=== PATIENT | female | born 1975 | race Caucasian/White ===

== ENCOUNTER 2022-01-13 14:14 | Outpatient (REF) | payer OTHER, SELFPAY ==
--- NOTE | ~2022-01-13 | MM_ITS ---
EXAMINATION: MM SCREENING DIGITAL BREAST TOMOSYNTHESIS, BILATERAL CLINICAL INFORMATION: Screening. Asymptomatic. The lifetime risk of breast cancer based on the Tyrer-Cuzick Model is 10%. COMPARISON: Outside mammography: 12/23/2020 ([facility]) TECHNIQUE: Digital breast tomosynthesis is performed in both the craniocaudal and mediolateral oblique views along with computer-aided detection (CAD). Synthesized 2D images are generated from the tomosynthesis. FINDINGS: There are scattered areas of fibroglandular density (ACR BI-RADS breast composition Category b). There are no significant masses, abnormal calcifications, or other abnormalities. Parenchymal pattern is similar to the outside exam. The axilla and skin contours are unremarkable. No significant changes. MM/MM tomosynthesis screening BI IMPRESSION: There are no significant changes from prior outside exam. ASSESSMENT: BI-RADS 1: Negative RECOMMENDATION: Routine annual mammography screening. This patient's information was entered into a reminder system with a target due date for their next mammogram.
== END 2022-01-13 14:15 | disposition home or self-care (01) ==
LOC: HO.MAMMO 14:14
PROVIDERS: PCP Internal Medicine; Visit Provider Internal Medicine
DX: Z12.31 Encounter for screening mammogram for malignant neoplasm of breast (principal)
CPT/HCPCS: 77063; 77067

== ENCOUNTER 2023-05-18 09:39 | Outpatient (REF) | payer OTHER, SELFPAY ==
[2023-05-18 11:45] LABS: MANUAL DIFF FLAG NO
[2023-05-18 11:52] LABS: Basophils Absolute Auto 0.1 X10*3/uL (0.0-0.2); Basophils Percent Auto 0.7 % (0-2); Eosinophils Absolute Auto 0.3 X10*3/uL (0.0-0.4); Eosinophils Percent Auto 2.6 % (0-4); Hematocrit 43.8 % (37.0-47.0); Hemoglobin 14.9 g/dl (12.0-16.0); Imm Gran Abs Auto 0.04 X10*3/uL (0.00-0.03); Imm Gran Pct Auto 0.4 % (0.0-0.4); Lymphocytes Absolute Auto 2.5 X10*3/uL (1.2-4.9); Lymphocytes Percent Auto 24.4 % (20-40); Mean Corpuscular Hemoglobin 31.1 pg (27.0-33.0); Mean Corpuscular Volume 91.4 fL (80.0-98.0); Mean Platelet Volume 10.2 fL (9.4-12.3); Monocytes Absolute Auto 0.5 X10*3/uL (0.1-1.2); Monocytes Percent Auto 4.6 % (2-11); Neutrophils Absolute Auto 6.8 x10*3/uL (2.0-8.3); Neutrophils Percent Auto 67.3 % (45-73); Platelet Count 278 X10*3/uL (160-400); Red Blood Count 4.79 X10*6/uL (4.20-5.50); Red Cell Distribution Width 12.1 % (11.0-16.0); White Blood Count 10.1 X10*3/uL (4.8-10.8)
[2023-05-18 12:11] LABS: Estimated Average Glucose 103 mg/dL; Hemoglobin A1c % 5.2 %
[2023-05-18 12:17] LABS: Alanine Aminotransferase 13 U/L (0-31); Albumin Level 4.4 g/dL (3.5-5.0); Alkaline Phosphatase 68 U/L (39-117); Anion Gap 11 (12-20); Aspartate Amino Transferase 17 U/L (5-31); Bilirubin Total 0.9 mg/dL (0.0-1.0); Blood Urea Nitrogen 10 mg/dL (9-16); Calcium 10.1 mg/dL (8.4-10.2); Carbon Dioxide 26 mmol/L (22-29); Chloride 108 mmol/L (96-108); Cholesterol 275 mg/dL; Estimated Glomerular Filt Rate > 60; Glucose Random 89 mg/dL (60-115); HDL Cholesterol 45 mg/dL; LDL Cholesterol Calculated 183 mg/dl; Potassium 3.9 mmol/L (3.3-5.1); Sodium 141 mmol/L (135-145); Total Protein 7.7 g/dL (6.5-8.0); Triglycerides 239 mg/dL
[2023-05-18 12:19] LABS: Free T4 (Free Thyroxine) 0.69 ng/dL (0.71-1.85); Thyroid Stimulating Hormone 12.26 uIU/mL (0.32-4.0)
[2023-05-18 12:40] LABS: Creatinine Urine 74.81 mg/dL
== END 2023-05-18 09:40 | disposition home or self-care (01) ==
LOC: HO.HHCL 09:39
PROVIDERS: Visit Provider Student in an Organized Health Care Education/Training Program
DX: I10 Essential (primary) hypertension (principal)
CPT/HCPCS: 36415; 80053; 80061; 82043; 83036; 84436; 84439; 84443; 85025

== ENCOUNTER 2023-08-24 10:26 | Outpatient (REF) | payer OTHER, SELFPAY ==
[2023-08-24 12:45] LABS: TSH reflex Free T4 11.21 uIU/mL (0.32-4.0)
[2023-08-24 12:56] LABS: Anion Gap 11 (12-20)
[2023-08-24 13:01] LABS: Alanine Aminotransferase 16 U/L (0-31); Albumin Level 4.1 g/dL (3.5-5.0); Alkaline Phosphatase 82 U/L (39-117); Aspartate Amino Transferase 18 U/L (5-31); Bilirubin Direct 0.2 mg/dL (0.0-0.5); Bilirubin Total 0.8 mg/dL (0.0-1.0); Blood Urea Nitrogen 8 mg/dL (9-16); Calcium 9.7 mg/dL (8.4-10.2); Carbon Dioxide 29 mmol/L (22-29); Chloride 101 mmol/L (96-108); Cholesterol 197 mg/dL (<200); Estimated Glomerular Filt Rate > 60; Glucose Random 90 mg/dL (60-115); HDL Cholesterol 39 mg/dL (>40); LDL Cholesterol Calculated 103 mg/dL (<100); Potassium 3.4 mmol/L (3.3-5.1); Sodium 138 mmol/L (135-145); Total Protein 7.3 g/dL (6.5-8.0); Triglycerides 276 mg/dL (<150)
[2023-08-24 13:15] LABS: Free T4 (Free Thyroxine) 0.64 ng/dL (0.71-1.85)
== END 2023-08-24 10:27 | disposition home or self-care (01) ==
LOC: HO.HHCL 10:26
PROVIDERS: Visit Provider Internal Medicine
DX: E66.9 Obesity, unspecified (principal); E28.2 Polycystic ovarian syndrome; E03.9 Hypothyroidism, unspecified; E78.5 Hyperlipidemia, unspecified
CPT/HCPCS: 36415; 80048; 80061; 80076; 84439; 84443

== ENCOUNTER 2024-02-20 12:25 | Outpatient (REF) | payer SELFPAY ==
[2024-02-20 14:28] LABS: Estimated Average Glucose 120 mg/dL; Hemoglobin A1c % 5.8 % (<6.0)
[2024-02-20 14:32] LABS: Rheumatoid Factor < 13.0 IU/mL (<15.0)
[2024-02-20 14:44] LABS: Erythrocyte Sedimentation Rate 40 MM/HR (0-20)
[2024-02-20 18:02] LABS: Alanine Aminotransferase 23 U/L (0-31); Albumin Level 4.3 g/dL (3.5-5.0); Alkaline Phosphatase 81 U/L (39-117); Anion Gap 12 (12-20); Aspartate Amino Transferase 22 U/L (5-31); Bilirubin Direct 0.2 mg/dL (0.0-0.5); Bilirubin Total 0.7 mg/dL (0.0-1.0); Blood Urea Nitrogen 12 mg/dL (9-16); C Reactive Protein 0.79 mg/dL (< or = 0.50); Calcium 9.3 mg/dL (8.4-10.2); Carbon Dioxide 28 mmol/L (22-29); Chloride 104 mmol/L (96-108); Cholesterol 182 mg/dL (<200); Estimated Glomerular Filt Rate > 60; Glucose Random 86 mg/dL (60-115); HDL Cholesterol 35 mg/dL (>40); LDL Cholesterol Calculated 99 mg/dL (<100); Sodium 141 mmol/L (135-145); Total Protein 7.7 g/dL (6.5-8.0); Triglycerides 242 mg/dL (<150)
[2024-02-20 18:06] LABS: TSH reflex Free T4 2.87 uIU/mL (0.32-4.0)
[2024-02-21 08:17] LABS: HIV AB/AG Nonreactive (Nonreactive); HIV Num 1 0.05 S/CO (0.00-0.99); ~HepC Num1 0.11 S/CO (0.00-0.79); ~Hepatitis C Antibody Nonreactive (Nonreactive)
[2024-02-21 15:34] LABS: Anti Nuclear Antibody Screen NEGATIVE (NEGATIVE)
== END 2024-02-20 12:26 | disposition home or self-care (01) ==
LOC: HO.HHCL 12:25
PROVIDERS: Visit Provider Internal Medicine
DX: Z11.4 Encounter for screening for human immunodeficiency virus [HIV] (principal); Z13.6 Encounter for screening for cardiovascular disorders; R53.83 Other fatigue
CPT/HCPCS: 36415; 80048; 80061; 80076; 83036; 84443; 85652; 86038; 86140; 86431; 86803; 87389

== ENCOUNTER 2024-02-28 09:49 | Outpatient (REF) | payer SELFPAY ==
[2024-02-28 11:32] LABS: MANUAL DIFF FLAG NO
[2024-02-28 11:42] LABS: Basophils Absolute Auto 0.1 X10*3/uL (0.0-0.2); Basophils Percent Auto 0.8 % (0-2); Eosinophils Absolute Auto 0.2 X10*3/uL (0.0-0.4); Eosinophils Percent Auto 2.2 % (0-4); Hematocrit 37.7 % (37.0-47.0); Hemoglobin 13.1 g/dl (12.0-16.0); Imm Gran Abs Auto 0.03 X10*3/uL (0.00-0.03); Imm Gran Pct Auto 0.3 % (0.0-0.4); Lymphocytes Absolute Auto 2.3 X10*3/uL (1.2-4.9); Lymphocytes Percent Auto 24.1 % (20-40); Mean Corpuscular HGB Conc 34.7 g/dl (31.0-35.0); Mean Corpuscular Hemoglobin 31.9 pg (27.0-33.0); Mean Corpuscular Volume 91.7 fL (80.0-98.0); Mean Platelet Volume 10.3 fL (9.4-12.3); Monocytes Absolute Auto 0.4 X10*3/uL (0.1-1.2); Monocytes Percent Auto 4.1 % (2-11); Neutrophils Absolute Auto 6.6 x10*3/uL (2.0-8.3); Neutrophils Percent Auto 68.5 % (45-73); Platelet Count 316 X10*3/uL (160-400); Red Blood Count 4.11 X10*6/uL (4.20-5.50); Red Cell Distribution Width 12.4 % (11.0-16.0); White Blood Count 9.7 X10*3/uL (4.8-10.8)
[2024-02-28 12:15] LABS: Anion Gap 11 (12-20); Blood Urea Nitrogen 9 mg/dL (9-16); Carbon Dioxide 26 mmol/L (22-29); Chloride 108 mmol/L (96-108); Estimated Glomerular Filt Rate > 60; Glucose Random 135 mg/dL (60-115); Potassium 3.6 mmol/L (3.3-5.1); Sodium 141 mmol/L (135-145)
== END 2024-02-28 09:50 | disposition home or self-care (01) ==
LOC: HO.HHCL 09:49
PROVIDERS: Visit Provider Internal Medicine
DX: E87.6 Hypokalemia (principal); R53.83 Other fatigue
CPT/HCPCS: 36415; 80048; 85025

== ENCOUNTER 2024-03-01 09:23 | Outpatient (REF) | payer SELFPAY ==
[2024-03-01 12:55] LABS: Iron 70 mcg/dL (30-160); Percent Iron Saturation 27 % (15-50); Total Iron Binding Capacity 255 mcg/dL (228-428); Unsaturated Iron Binding 185 ug/dL
[2024-03-01 13:14] LABS: Ferritin 131 ng/mL (10-250)
== END 2024-03-01 09:24 | disposition home or self-care (01) ==
LOC: HO.HHCL 09:23
PROVIDERS: Visit Provider Internal Medicine
DX: R53.83 Other fatigue (principal)
CPT/HCPCS: 36415; 82728; 83540

== ENCOUNTER 2024-03-22 10:03 | Outpatient (REF) | payer OTHER, SELFPAY ==
--- NOTE | ~2024-03-22 | XR_ITS ---
EXAMINATION: XR WRIST, RIGHT CLINICAL INFORMATION: Right wrist pain for 2 weeks. Pain anteriorly over ulnar aspect. COMPARISON: None available. TECHNIQUE: PA, lateral, and oblique views of the right wrist. XR/XR wrist RT min 3V FINDINGS AND IMPRESSION: There is approximately 0.35 cm of ulna negative variance. The distal radius and ulna are intact. The distal radioulnar joint is normal. Joint spaces of the wrist are normal. No arthritic deformity. No fracture, subluxation or focal soft tissue swelling. There are no dystrophic soft tissue calcifications. No specific source of pain is identified.
== END 2024-03-22 10:04 | disposition home or self-care (01) ==
LOC: HO.HHCX 10:03
PROVIDERS: Visit Provider Emergency Medicine
DX: M25.531 Pain in right wrist (principal)
CPT/HCPCS: 73110

== ENCOUNTER 2024-05-03 12:40 | Outpatient (REF) | payer OTHER, SELFPAY ==
[2024-05-03 13:10] LABS: MANUAL DIFF FLAG NO
[2024-05-03 13:19] LABS: Basophils Absolute Auto 0.1 X10*3/uL (0.0-0.2); Basophils Percent Auto 0.8 % (0-2); Eosinophils Absolute Auto 0.2 X10*3/uL (0.0-0.4); Eosinophils Percent Auto 2.9 % (0-4); Hematocrit 41.4 % (37.0-47.0); Hemoglobin 14.1 g/dl (12.0-16.0); Imm Gran Abs Auto 0.02 X10*3/uL (0.00-0.03); Imm Gran Pct Auto 0.3 % (0.0-0.4); Lymphocytes Absolute Auto 2.3 X10*3/uL (1.2-4.9); Lymphocytes Percent Auto 30.3 % (20-40); Mean Corpuscular HGB Conc 34.1 g/dl (31.0-35.0); Mean Corpuscular Hemoglobin 30.9 pg (27.0-33.0); Mean Corpuscular Volume 90.6 fL (80.0-98.0); Monocytes Absolute Auto 0.5 X10*3/uL (0.1-1.2); Neutrophils Absolute Auto 4.4 x10*3/uL (2.0-8.3); Neutrophils Percent Auto 58.7 % (45-73); Platelet Count 277 X10*3/uL (160-400); Red Blood Count 4.57 X10*6/uL (4.20-5.50); Red Cell Distribution Width 11.9 % (11.0-16.0); White Blood Count 7.6 X10*3/uL (4.8-10.8)
[2024-05-03 13:30] LABS: Estimated Average Glucose 117 mg/dL; Hemoglobin A1c % 5.7 % (<6.0)
[2024-05-03 14:49] LABS: Alanine Aminotransferase 18 U/L (0-31); Albumin Level 4.6 g/dL (3.5-5.0); Alkaline Phosphatase 95 U/L (39-117); Anion Gap 15 (12-20); Aspartate Amino Transferase 17 U/L (5-31); Bilirubin Total 0.9 mg/dL (0.0-1.0); Blood Urea Nitrogen 12 mg/dL (9-16); Calcium 9.9 mg/dL (8.4-10.2); Carbon Dioxide 26 mmol/L (22-29); Chloride 104 mmol/L (96-108); Estimated Glomerular Filt Rate > 60; Glucose Random 66 mg/dL (60-115); Potassium 3.5 mmol/L (3.3-5.1); Sodium 141 mmol/L (135-145); Total Protein 8.1 g/dL (6.5-8.0)
[2024-05-03 14:55] LABS: TSH reflex Free T4 3.38 uIU/mL (0.32-4.0); Vitamin D 25-OH Total 28.5 ng/mL (>30)
[2024-05-03 15:15] LABS: Folate 9.1 ng/mL (> or = 4.0); Vitamin B12 339 pg/mL (200-900)
== END 2024-05-03 12:41 | disposition home or self-care (01) ==
LOC: HO.HHCL 12:40
PROVIDERS: Visit Provider Internal Medicine
DX: G47.10 Hypersomnia, unspecified (principal); R73.03 Prediabetes
CPT/HCPCS: 36415; 80053; 82306; 82607; 82746; 83036; 84443; 85025

== ENCOUNTER 2024-07-16 14:17 | Outpatient (REF) | payer OTHER, SELFPAY ==
--- NOTE | ~2024-07-16 | MM_ITS ---
EXAMINATION: MM SCREENING DIGITAL BREAST TOMOSYNTHESIS, BILATERAL CLINICAL INFORMATION: Screening. Asymptomatic. COMPARISON: Mammography: Comparison is made with available priors TECHNIQUE: Digital breast mammography with tomosynthesis is performed in both the craniocaudal and mediolateral oblique views along with computer-aided detection (CAD). FINDINGS: There are scattered areas of fibroglandular density (ACR BI-RADS breast composition Category b). There are no significant masses, abnormal calcifications, or other abnormalities. MM/MM tomosynthesis screening BI IMPRESSION: No mammographic evidence of malignancy. ASSESSMENT: BI-RADS BI-RADS 1 - Negative RECOMMENDATION: Routine annual mammography screening. 1 year F/U This examination should not preclude the clinical evaluation of a suspicious palpable abnormality. This patient's information was entered into a reminder system with a target due date for their next mammogram. Electronically signed by: Kim Dye DO 08/06/2024 04:20 PM EDT
== END 2024-07-16 14:18 | disposition home or self-care (01) ==
LOC: HO.MAMMO 14:17
PROVIDERS: PCP Internal Medicine; Visit Provider Internal Medicine
DX: Z12.31 Encounter for screening mammogram for malignant neoplasm of breast (principal)
CPT/HCPCS: 77063; 77067

== ENCOUNTER → 2024-07-16 14:30 | Outpatient (BNV) | payer OTHER, SELFPAY | PROVIDERS: PCP Internal Medicine; Visit Provider Internal Medicine | DX: Z12.31 Encounter for screening mammogram for malignant neoplasm of breast (principal) | CPT/HCPCS: 77063; 77067 ==

== ENCOUNTER 2024-07-25 14:20 | Outpatient (REF) | payer OTHER, SELFPAY ==
--- NOTE | ~2024-07-25 | XR_ITS ---
EXAMINATION: XR SHOULDER, RIGHT CLINICAL INFORMATION: Right shoulder pain. COMPARISON: None available. TECHNIQUE: AP, Grashey, and scapular Y views of the right shoulder. FINDINGS: Tfwo-yb-soikdbju acromioclavicular joint space narrowing with small marginal osteophytes. No glenohumeral joint space narrowing or marginal osteophytes. Mild superior subluxation of the humeral head which could indicate an underlying rotator cuff tendon tear. Lobulated calcification associated with the distal infraspinatus tendon measuring up to 1.8 cm in craniocaudal dimension, consistent with calcific tendinitis. XR/XR shoulder RT min 2V IMPRESSION: 1. Infraspinatus calcific tendinitis. 2. Mild superior subluxation of the humeral head which could indicate an underlying rotator cuff tendon tear. 3. Eepe-le-tqfkruuo acromioclavicular osteoarthritis. Electronically signed by: Neo Banda MD 07/26/2024 09:34 AM EDT
== END 2024-07-25 14:21 | disposition home or self-care (01) ==
LOC: HO.HHCX 14:20
PROVIDERS: Visit Provider Student in an Organized Health Care Education/Training Program
DX: M25.511 Pain in right shoulder (principal); G89.29 Other chronic pain
CPT/HCPCS: 73030

== ENCOUNTER 2025-06-02 09:22 | Outpatient (REF) | payer OTHER, SELFPAY ==
--- OUTSIDE RECORDS SUMMARY | 2025-06-02 10:11 | XMS_ITS | Encounter Summary ---
Author Organization [employer] Address [address] [facility] 7 [place] [address] Care Team Providers Care Customer Service Professional Name Role Phone Sejal Viramontes MD Primary Care Provide r Encounter Details Date Type Department Care Team (Late st Contact Info) Description 12/14/2023 Abstract [facility] [address] [place], [place] [phone] Luiz Pattreson, DMD [address], [place] [phone] Social History Tobacco Use Types Packs/Day Years Used Date Smoking Tobacco: Every Day Cigarettes Passive Smoke Exposure: Past Smokeless Tobacco: Never Alcohol Use Standard Drinks/Week Comments Defer 0 (1 standard drink = 0.6 oz pur e alcohol) Depression Answer Date Recorded Patient Health Questionnaire-9 Score 0 07/17/2023 Housing Stability Answer Date Recorded What is your housing situation today? I have robert chow 08/22/[address] you li ve. Do you have problems with any of the following? None of the above 08/22/2023 Food Insecurity Answer Date Recorded Within the past 12 months, y ou worried that your food would run out before you got money to buy more: Never True 08/22/2023 Within the past 12 months,th e food you bought just didn't last and you didn't have enough money to get more: Never True Transportation Answer Date Recorded In the past 12 months, has l ack of transportation kept you from medical appts, meetings, work or from getting things needed for daily living? No 08/22/2023 Utilities Answer Date Recorded In the past 12 months, has t he electric, gas, oil or water company threatened to shut off services in your home? No 08/22/2023 Depression Answer Date Recorded Patient Health Questionnaire-2 Score 0 07/17/2023 Comments Unknown Sex and Gender Information Value Date Recorded Sex Assigned at Female 09/05/2022 10:37 AM EDT Legal Sex Female 10:37 AM EDT Gender Identity Female 09/05/2022 10:37 AM EDT Sexual Orientation Straight 09/05/2022 10 :37 AM EDT documented as of this encounter Plan of Treatment Upcoming Encounters Date Type Department Care Team (Late st Contact Info) Description 08/01/2025 9:00 AM EDT Office Visit [facility] [address] [place] [phone] Sejal Viramontes MD [address] [place] [phone] documented as of this encounter Visit Diagnoses Not on filedocumented in this encounter Additional Health Concerns Assessment Noted Time PHQ-9 Depression Total Score: 0 07/17/20 23 12:58 PM EDT documented as of this encounter Care Teams Customer Service Professional Relationship Specialty Start Date End Date Sejal Viramontes MD [address] [place] [phone] PCP - General Family Medicine 12/21/21 documented as of this encounter
[2025-06-02 11:37] LABS: MANUAL DIFF FLAG NO
[2025-06-02 11:41] LABS: Hematocrit 41.5 % (37.0-47.0); Hemoglobin 14.2 g/dl (12.0-16.0); Imm Gran Abs Auto 0.05 X10*3/uL (0.00-0.03); Imm Gran Pct Auto 0.5 % (0.0-0.4); Lymphocytes Absolute Auto 2.5 X10*3/uL (1.2-4.9); Mean Corpuscular HGB Conc 34.2 g/dl (31.0-35.0); Mean Corpuscular Hemoglobin 31.1 pg (27.0-33.0); Mean Corpuscular Volume 90.8 fL (80.0-98.0); NRBC Abs Auto 0.000 X10*3/uL (0.0-0.012); NRBC Pct Auto 0.0 /100WBC (0.0-0.2); Platelet Count 306 X10*3/uL (160-400); Red Blood Count 4.57 X10*6/uL (4.20-5.50); White Blood Count 10.8 X10*3/uL (4.8-10.8)
[2025-06-02 12:39] LABS: Albumin Level 4.8 g/dL (3.5-5.0); Alkaline Phosphatase 98 U/L (39-117); Anion Gap 11 (12-20); Aspartate Amino Transferase 30 U/L (5-31); Blood Urea Nitrogen 16 mg/dL (9-16); Calcium 9.3 mg/dL (8.4-10.2); Carbon Dioxide 26 mmol/L (22-29); Chloride 107 mmol/L (96-108); Cholesterol 205 mg/dL (<200); Estimated Glomerular Filt Rate 56; HDL Cholesterol 41 mg/dL (>40); Potassium 3.2 mmol/L (3.3-5.1); Sodium 141 mmol/L (135-145); Total Protein 8.0 g/dL (6.5-8.0); Triglycerides 228 mg/dL (<150)
[2025-06-02 13:55] LABS: Alanine Aminotransferase 29 U/L (0-31)
[2025-06-02 14:06] LABS: HIV Num 1 0.05 S/CO (0.00-0.99); ~HepC Num1 0.14 S/CO (0.00-0.79); ~Hepatitis C Antibody Nonreactive (Nonreactive)
== END 2025-06-02 09:23 | disposition home or self-care (01) ==
LOC: HO.HHCL 09:22
PROVIDERS: PCP Internal Medicine; Visit Provider Internal Medicine
DX: Z11.4 Encounter for screening for human immunodeficiency virus [HIV] (principal); Z11.59 Encounter for screening for other viral diseases; I10 Essential (primary) hypertension; E66.811 Obesity, class 1; Z68.34 Body mass index [BMI] 34.0-34.9, adult; R73.03 Prediabetes
CPT/HCPCS: 36415; 80053; 80061; 82306; 84443; 85025; 86803; 87389

== ENCOUNTER 2025-06-12 12:26 | Outpatient (REF) | payer OTHER, SELFPAY ==
--- OUTSIDE RECORDS SUMMARY | 2025-06-12 12:37 | XMS_ITS | Encounter Summary ---
Author Organization [employer] Address [address] [facility] 7t [place] [address] Care Team Providers Care Other Wood Processing Machine Operator Name Role Phone Sejal Viramontes MD Primary Care Provide r Encounter Details Date Type Department Care Team (Late st Contact Info) Description 12/14/2023 Abstract [facility] [address] [place], [place] [phone] Luiz Patterson, DMD [address], [place] [phone] Social History Tobacco Use Types Packs/Day Years [...] Description 08/01/2025 9:00 AM EDT Office Visit [facility] MED[facility] [address] [place] [phone] Sejal Viramontes MD [address] [place] [phone] documented as of this encounter Visit Diagnoses Not on filedocumented in this encounter Additional Health Concerns Assessment Noted Time PHQ-9 Depression Total Score: 0 07/17/20 23 12:58 PM EDT documented as of this encounter Care Teams Other Wood Processing Machine Operator Relationship Specialty Start Date End Date Sejal Viramontes MD [address] [place] [phone] PCP - General Family Medicine 12/21/21 documented as of this encounter
[2025-06-12 13:54] LABS: Anion Gap 13 (12-20); Blood Urea Nitrogen 16 mg/dL (9-16); Calcium 9.5 mg/dL (8.4-10.2); Carbon Dioxide 27 mmol/L (22-29); Chloride 104 mmol/L (96-108); Estimated Glomerular Filt Rate > 60; Potassium 3.1 mmol/L (3.3-5.1); Sodium 141 mmol/L (135-145)
== END 2025-06-12 12:27 | disposition home or self-care (01) ==
LOC: HO.HHCL 12:26
PROVIDERS: PCP Internal Medicine; Visit Provider Internal Medicine
DX: E87.6 Hypokalemia (principal)
CPT/HCPCS: 36415; 80048

== ENCOUNTER 2025-07-14 10:56 | Outpatient (REF) | payer OTHER, SELFPAY ==
--- OUTSIDE RECORDS SUMMARY | 2025-07-14 09:40 | XMS_ITS | Encounter Summary ---
Author Organization [employer] Address [address] [facility] 7t [place] [address] Care Team Providers Care Child Day Care Center Worker Name Role Phone Sejal Viramontes MD Primary Care Provide r Reason for Visit * Reason Comments face infection Encounter Details Date Type Department Care Team ([facility] st Contact Info) Description 07/14/2025 9:40 AM EDT Office Visit [facility] [address] [place], [place] [phone] Nitza Henderson NP [address] [place] [address] Vesicles (Primary Dx); Cellulitis of face Social [...] Chronic Kidney Disease: Estimated GFR < 60 mL/min/[id number] Kidney Disease: Estimated GFR < 15 mL/min/1.73m2 [...] Description 08/01/2025 9:00 AM EDT Office Visit [facility] [address] [place] [phone] Sejal Viramontes MD [address] [place] [address] Scheduled Orders Name Type Priority Associated Diagnoses [...] documented as of this encounter Care Teams Child Day Care Center Worker Relationship Specialty Start Date End Date Sejal Viramontes MD [address] [place] [address] PCP - General Family Medicine 12/21/21 documented as of this encounter
--- OUTSIDE RECORDS SUMMARY | 2025-07-15 13:15 | XMS_ITS | Encounter Summary ---
Author Organization [employer] Address [address] [facility] 7 [place] [address] Care Team Providers Care Machinist Job Setter Name Role Phone Sejal Viramontes MD Primary Care Provide r Reason for Visit * Reason Onset Date Comments Med Refill 11/27/2024 Encounter Details Date Type Department Care Team (Late st Contact Info) Description 11/27/2024 Refill [facility] [address] [place], [place] [phone] Sejal Viramontes MD [address] [place] [address] Acquired hypothyroidism Social History Tobacco Use Types Packs/Day Years Used Date Smoking Tobacco: Every Day Cigarettes Passive Smoke Exposure: Past Smokeless Tobacco: Never Alcohol Use Standard Drinks/Week Comments Defer 0 (1 standard drink = 0.6 oz pur e alcohol) Depression Answer Date Recorded Patient Health Questionnaire-9 Score 0 07/30/2024 Patient Health Questionnaire-9 Score 0 07/30/2024 Last PHQ-9: Questionnaire Data Not on file 0 07/30/2024 Housing Stability Answer Date Recorded What is your housing situation today? I have robertaniyah chow 08/22/[address] you [...] Date Recorded Patient Health Questionnaire-2 Score 0 07/30/2024 Internet Access Answer Date Recorded Internet Access Q1 Yes 07/08/2024 Internet Access Q2 Not on file 07/08/2024 Comments Unknown Sex and Gender Information Value [...] Description 08/01/2025 9:00 AM EDT Office Visit [facility] [address] [place] [address] Sejal Viramontes MD [address] [place] [address] documented as of this encounter Visit Diagnoses Diagnosis Acquired hypothyroidism Unspecified hypothyroidism documented in this encounter Additional Health Concerns Assessment Noted Time PHQ-9 Depression Total Score: 0 07/30/20 24 9:38 AM EDT documented as of this encounter Care Teams Machinist Job Setter Relationship Specialty Start Date End Date Sejal Viramontes MD [address] [place] [phone] PCP - General Family Medicine 12/21/21 documented as of this encounter
--- OUTSIDE RECORDS SUMMARY | 2025-07-15 13:15 | XMS_ITS | Encounter Summary ---
Author Organization [employer] Address [address] [facility] 7 [place] [address] Care Team Providers Care Machinist Helper Name Role Phone Sejal Viramontes MD Primary Care Provide r Reason for Visit * Reason Onset Date Comments Med Refill 09/21/2023 Encounter Details Date Type Department Care Team (Late st Contact Info) Description 09/21/2023 Refill [facility] [address] [place], [place] [phone] Sejal Viramontes MD [address] [place] [address] Essential hypertension Social History Tobacco Use Types Packs/Day Years Used Date Smoking Tobacco: Every Day Cigarettes Passive Smoke Exposure: Past Smokeless Tobacco: Never Depression Answer Date Recorded Patient Health Questionnaire-9 [...] Description 08/01/2025 9:00 AM EDT Office Visit [facility] [address] [place] [phone] Sejal Viramontes MD [address] [place] [address] documented as of this encounter Visit Diagnoses Diagnosis Essential hypertension Unspecified essential hypertension documented in this encounter Additional Health Concerns Assessment Noted Time PHQ-9 Depression Total Score: 0 07/17/20 23 12:58 PM EDT documented as of this encounter Care Teams Machinist Helper Relationship Specialty Start Date End Date Sejal Viramontes MD [address] [place] [phone] PCP - General Family Medicine 12/21/21 documented as of this encounter
--- OUTSIDE RECORDS SUMMARY | 2025-07-15 13:15 | XMS_ITS | Encounter Summary ---
Author Organization [employer] Address [address] [facility] 7 [place] [address] Care Team Providers Care Strike Off Machine Operator Name Role Phone Sejal Viramontes MD Primary Care Provide r Reason for Visit * Reason Onset Date Comments Specimen label 07/15/2025 Encounter Details Date Type Department Care Team ([facility] st Contact Info) Description 07/15/2025 Telephone [facility] [address] [place], [place] [phone] Nitza Henderson, RASHID [address] [place] [address] Specimen label Social History Tobacco Use Types Packs/Day Years [...] AM EDT documented as of this encounter Miscellaneous Notes * Telephone Encounter - Guillermo Colunga [place] - 07/15/2025 11:01 AM EDT Incoming call from [facility] to inform that due to specimen container ith wrong pt label was receivedtest was not perform. Pt will need a re-collection. Please f/u with DAVIS Tristan if needs re-collection. Thank you. documented in this encounter Plan of Treatment Upcoming Encounters Date Type Department Care Team (Late st Contact Info) Description 08/01/2025 9:00 AM EDT Office Visit [facility] [address] [place] [address] Sejal Viramontes MD [address] [place] [address] documented as of this encounter Visit Diagnoses Not on filedocumented in this encounter Additional Health Concerns Assessment Noted Time PHQ-9 Depression Total Score: 0 05/29/20 25 9:10 AM EDT documented as of this encounter Care Teams Strike Off Machine Operator Relationship Specialty Start Date End Date Sejal Viramontes MD [address] [place] [address] PCP - General Family Medicine 12/21/21 documented as of this encounter
--- OUTSIDE RECORDS SUMMARY | 2025-07-15 13:15 | XMS_ITS | Encounter Summary ---
Author Organization [employer] Address 75 [facility] 7t [place] [address] Care Team Providers Care Rubbish Collector Name Role Phone Sejal Viramontes MD Primary Care Provide r Encounter Details Date Type Department Care Team (Late st Contact Info) Description 10/17/[address] [facility] [address] [place] [address] [phone] Sejal Viramontes MD [address] [place], [place] [phone] Social History Tobacco Use Types Packs/Day Years [...] Description 08/01/2025 9:00 AM EDT Office [address] [facility] [address] [place] [address] Sejal Viramontes MD [address] [place] [address] documented as of this encounter Visit Diagnoses Not on filedocumented in this encounter Additional Health Concerns Assessment Noted Time PHQ-9 Depression Total Score: 0 07/17/20 23 12:58 PM EDT documented as of this encounter Care Teams Rubbish Collector Relationship Specialty Start Date End Date Sejal Viramontes MD [address] [place] [address] PCP - General Family Medicine 12/21/21 documented as of this encounter
--- OUTSIDE RECORDS SUMMARY | 2025-07-15 13:15 | XMS_ITS | Encounter Summary ---
Author Organization [employer] Address 75 [facility] 7 [place] [address] Care Team Providers Care Office Services Assistant Name Role Phone Sejal Viramontes MD Primary Care Provide r Reason for Visit * Reason Onset Date Comments Med Refill 01/13/2025 Encounter Details Date Type Department Care Team (Late st Contact Info) Description 01/13/2025 Refill [facility] [address] [place], [place] [phone] Sejal Viramontes MD [address] [place] [address] Gastroesophageal reflux disease, unspecified whether esophagitis present Social History Tobacco Use Types Packs/Day Years [...] Description 08/01/2025 9:00 AM EDT Office Visit [facility] [address] [place] [address] Sejal Viramontes MD [address] [place] [address] documented as of this encounter Visit Diagnoses Diagnosis Gastroesophageal reflux disease, unspecified whether esophagitis present documented in this encounter Additional Health Concerns Assessment Noted Time PHQ-9 Depression Total Score: 0 07/30/20 24 9:38 AM EDT documented as of this encounter Care Teams Office Services Assistant Relationship Specialty Start Date End Date Sejal Viramontes MD [address] [place] [address] PCP - General Family Medicine 12/21/21 documented as of this encounter
--- OUTSIDE RECORDS SUMMARY | 2025-07-15 13:15 | XMS_ITS | Encounter Summary ---
Author Organization [employer] Address 75 [facility] 7t [place] [address] Care Team Providers Care Microsoft Crm Developer Name Role Phone Sejal Viramontes MD Primary Care Provide r Encounter Details Date Type Department Care Team (Latest Contact Info) Description 07/14/2025 Travel Social History Tobacco Use Types Packs/Day Years [...] 9:00 AM EDT Office Visit [facility] [address] [place] [address] Sejal Viramontes MD [address] [place] [phone] documented as of this encounter Visit Diagnoses Not on filedocumented in this encounter Additional Health Concerns Assessment Noted Time PHQ-9 Depression Total Score: 0 05/29/20 25 9:10 AM EDT documented as of this encounter Care Teams Microsoft Crm Developer Relationship Specialty Start Date End Date Sejal Viramontes MD [address] [place] [id number] PCP - General Family Medicine 12/21/21 documented as of this encounter
--- OUTSIDE RECORDS SUMMARY | 2025-07-15 13:15 | XMS_ITS | Encounter Summary ---
Author Organization [employer] Address 75 [facility] 7 [place] [address] Care Team Providers Care Fiberglass Bonding Machine Tender Name Role Phone Sejal Viramontes MD Primary Care Provide r Encounter Details Date Type Department Care Team (Late st Contact Info) Description 12/14/2023 Abstract [facility] [address] [place], [place] [phone] Luiz Patterson, DMD [address] [place], [place] [phone] Social History Tobacco Use Types Packs/Day Years [...] Description 08/01/2025 9:00 AM EDT Office Visit [facility] [address] [place] [phone] Sejal Viramontes MD [address] [place] [phone] documented as of this encounter Visit Diagnoses Not on filedocumented in this encounter Additional Health Concerns Assessment Noted Time PHQ-9 Depression Total Score: 0 07/17/20 23 12:58 PM EDT documented as of this encounter Care Teams Fiberglass Bonding Machine Tender Relationship Specialty Start Date End Date Sejal Viramontes MD [address] [place] [id number] PCP - General Family Medicine 12/21/21 documented as of this encounter
--- OUTSIDE RECORDS SUMMARY | 2025-07-15 13:15 | XMS_ITS | Encounter Summary ---
Author Organization [employer] Address [address] [facility] 7 [place] [address] Care Team Providers Care Buffet Manager Name Role Phone Sejal Viramontes MD Primary Care Provide r Reason for Visit * Reason Onset Date Comments Med Refill 09/03/2024 Encounter Details Date Type Department Care Team ([facility] st Contact Info) Description 09/03/2024 Refill [facility] [address] [place], [place] [phone] Sejal Viramontes MD [address] [place] [address] Menopause Social History Tobacco Use Types Packs/Day Years [...] Description 08/01/2025 9:00 AM EDT Office Visit [facility] [address] [place] [address] Sejal Viramontes MD [address] [place] [address] documented as of this encounter Visit Diagnoses Diagnosis Menopause Symptomatic menopausal or female climacteric states documented in this encounter Additional Health Concerns Assessment Noted Time PHQ-9 Depression Total Score: 0 07/30/20 24 9:38 AM EDT documented as of this encounter Care Teams Buffet Manager Relationship Specialty Start Date End Date Sejal Viramontes MD [address] [place] [phone] PCP - General Family Medicine 12/21/21 documented as of this encounter
--- OUTSIDE RECORDS SUMMARY | 2025-07-15 13:15 | XMS_ITS | Encounter Summary ---
Author Organization [employer] Address [address] [facility] 7 [place] [address] Care Team Providers Care Order Runner Name Role Phone Sejal Viramontes MD Primary Care Provide r Reason for Visit * Reason Comments Med Refill Encounter Details Date Type Department Care Team ([facility] st Contact Info) Description 07/09/2025 Refill [facility] [address] [place], [place] [phone] Sejal Viramontes MD [address] [place] [address] Gastroesophageal reflux disease, unspecified whether esophagitis present [...] 9:00 AM EDT Office Visit [facility] [address] [place] [address] Sejal Viramontes MD [address] [place] [address] documented as of this encounter Visit Diagnoses Diagnosis Gastroesophageal reflux disease, unspecified whether esophagitis present documented in this encounter Additional Health Concerns Assessment Noted Time PHQ-9 Depression Total Score: 0 05/29/20 25 9:10 AM EDT documented as of this encounter Care Teams Order Runner Relationship Specialty Start Date End Date Sejal Viramontes MD [address] [place] [address] [phone] PCP - General Family Medicine 12/21/21 documented as of this encounter
--- OUTSIDE RECORDS SUMMARY | 2025-07-15 13:16 | XMS_ITS | Clinical Summary ---
Author Organization [email or web address] Address [address] [place] [address] 7 [place] [address] Care Team Providers Care Flyer Maker Name Role Phone Sejal Viramontes MD Primary Care Provide r Allergies No known active allergies Medications losartan (Cozaar) 100 MG tabletIndications :Hypokalemia TAKE 1 TABLET BY MOUTH EVERY DAY IN THE MORNING 30 tablet 11 02/26/20 25 Active amLODIPine (Norvasc) 10 MG tabletIndications :Hypokalemia TAKE 1 TABLET BY MOUTH EVERY DAY IN THE MORNING 30 tablet 11 03/24/20 25 Active venlafaxine XR (Effexor XR) 37.5 MG 24 hr capsuleIndication s:Menopause TAKE 1 CAPSULE BY MOUTH EVERY DAY. DO NOT BREAK, CRUSH, DISSOLVE OR CHEW. 30 capsule 5 03/28/20 25 Active levothyroxine (Synthroid, Levoxyl) 150 MCG tabletIndications :Acquired hypothyroidism TAKE 1 TABLET BY MOUTH EVERY MORNING BEFORE BREAKFAST 90 tablet 1 05/28/20 25 Active phentermine 15 MG capsuleIndication s:Class 1 obesity due to excess calories with serious comorbidity and body mass index (BMI) of 34.0 to 34.9 in adult Take 1 capsule (15 mg) by mouth before breakfast. 30 capsule 1 05/29/20 25 Active topiramate (Topamax) 25 MG tabletIndications :Class 1 obesity due to excess calories with serious comorbidity and body mass index (BMI) of 34.0 to 34.9 in adult Take 1 tablet (25 mg) by mouth Once per day. 30 tablet 2 05/29/20 25 026 Active atorvastatin (Lipitor) 40 MG tabletIndications :Hyperchylomicron emia Take 1 tablet (40 mg) by mouth in the morning. 90 tablet 1 06/02/20 25 Active metoprolol succinate XL (Toprol XL) 25 MG 24 hr tabletIndications :Essential hypertension Take 1 tablet (25 mg) by mouth Once per day. Do not crush or chew. 30 tablet 11 06/12/20 25 026 Active clotrimazole (Lotrimin) 1 % cream Apply topically 2 times daily. 60 g 1 06/18/20 25 Active naproxen (Naprosyn) 500 MG tabletIndications :Chronic right shoulder pain TAKE 1 TABLET BY MOUTH TWICE DAILY 30 tablet 1 06/25/20 25 Active omeprazole (PriLOSEC) [address] capsuleIndication s:Gastroesophagea l reflux disease, unspecified whether esophagitis present TAKE 1 CAPSULE BY MOUTH EVERY DAY BEFORE BREAKFAST. DO NOT BREAK, CRUSH, DISSOLVE OR CHEW. 30 capsule 5 07/10/20 25 Active amoxicillin-clavu lanate (Augmentin) 875-125 MG tablet Take 1 tablet by mouth 2 times daily for 7 days. 14 tablet 07/14/20 25 025 Active naproxen (Naprosyn) 500 MG tabletIndications :Chronic right shoulder pain Take 1 tablet (500 mg) by mouth 2 times daily. 30 tablet 1 08/28/20 24 025 Discontinued omeprazole (PriLOSEC) [address] capsuleIndication s:Gastroesophagea l reflux disease, unspecified whether esophagitis present TAKE 1 CAPSULE BY MOUTH EVERY DAY BEFORE BREAKFAST, DO NOT BREAK, CRUSH, DISSOLVE OR CHEW 30 capsule 5 01/01/20 25 025 Discontinued Active Problems Problem Noted Date Diagnosed Date Cerebrospinal fluid viral culture positive for r ubella 07/14/2025 Vesicles 07/14/2025 Assessment & Plan (07/14/2025 11:37 AM EDT): Orders: Herpes Simplex Virus (HSV) Culture and Typing; Future Cellulitis of face 07/14/2025 Assessment & Plan (07/14/2025 11:37 AM EDT): Colon cancer screening 05/29/2025 Class 1 obesity due to exces s calories with serious comorbidity and body mass index (BMI) of 34.0 to 34.9 in adult 05/29/2025 Assessment & Plan (05/29/2025 10:23 AM EDT): Extensive counseling about healthy diet and exercise done today I decided to start her on phentermine 15 mg and topiramate 25 mg daily, side effects of medications were reviewed with patient plan is for her to return in about 4 to 6 weeks for weight monitoring and side effects of the medication monitoring Trigger middle finger of right hand 05/29/2025 Numbness and tingling in right hand 05/29/2025 Encounter for preventive health examination 07/08 Assessment & Plan (07/30/2024 10:53 AM EDT): See HPI Mammogram recently done I will obtain records Also I will obtain records of recent colonoscopy and EGD Right shoulder pain 07/25/2024 Assessment & Plan (07/30/2024 10:51 AM EDT): Waiting for MRI and orthopedics evaluation Assessment & Plan (07/25/2024 8:29 PM EDT): 04/2024 CBC and chem wnl , no GI bleed hx Seems possible pain in right shoulder from tendinitis , no trauma to suggest muscle rupture nor from exam ,will r/o as well OA -right shoulder XR -tylenol and NSAIDS prn -px lidoderm patch -referred to PT -f w PCP , if no better consdier US vs MRI of extremity to further eval Menopause 06/07/2024 Assessment & Plan (06/07/2024 11:57 AM EDT): Counseling done Discussion done and we agree to try venlafaxine Prediabetes 05/03/2024 Assessment & Plan (05/29/2025 10:23 AM EDT): A1c seems to be going up, extensive counseling about healthy diet and exercise plus weight loss was done today Assessment & Plan (05/03/2024 1:59 PM EDT): I will repeat her A1c discussion was done about life style modifications I advise healthy diet (low calorie) and cardiovascular exercise Witnessed episode of apnea 05/03/2024 Encounter for screening mamm ogram for malignant neoplasm of breast 05/03/2024 Hypokalemia 02/21/2024 Hypersomnia 02/20/2024 Assessment & Plan (02/21/2024 2:17 PM EDT): Home sleep studies ordered today Snoring 02/20/2024 Assessment & Plan (02/21/2024 2:17 PM EDT): Home sleep studies ordered today Other fatigue 02/20/2024 Assessment & Plan (07/30/2024 10:52 AM EDT): Sleep study reviewed no RICKY, excessive snoring, it was advise weight reduction and avoid supine position Assessment & Plan (05/03/2024 2:01 PM EDT): Sleep studies will be ordered I will repeat blood work Assessment & Plan (02/21/2024 2:18 PM EDT): Sleep studies and blood work ordered including TSH Patient will be contacted with results Periodontal disease 08/28/2023 Dental calculus 08/28/2023 Localized gingival recession, minimal 08/28/2023 Weight gain 08/23/2023 Assessment & Plan (08/23/2023 3:33 PM EDT): Labs will be check first If TSH is stable I will prescribe ozempic, first side effects will be explain and also I let patient know it will have to be paid out of pocket (insurance does not cover this medications for weight loss) Patient declines weight management referral Hyperlipidemia 07/17/2023 Tobacco use 05/19/2023 Assessment & Plan (07/17/2023 1:28 PM EDT): smoking cessation counseling done I will start bupropion today Assessment & Plan (06/14/2023 10:02 AM EDT): Counseling done she will start nicotin patches next week Assessment & Plan (05/19/2023 3:05 PM EDT): Pt interested in smoking cessation. States that she already has a prescription for nicotine patches and would like to start using them next month. -encourage pt to continue working on smoking cessation. Migraine headache 05/19/2023 Assessment & Plan (06/14/2023 10:02 AM EDT): I advise to avoid migraine triggers like red wine, chocolate, cheese, strong perfumes C/w Excedrin or tylenol PRN Assessment & Plan (05/19/2023 3:07 PM EDT): Pt reports a Hx of migraine headaches for which she takes Ibuprofen PRN. -advise to avoid as possible NSAIDs due to her uncontrolled HTN. -Tylenol for mild pain. -Prescribed Excedrin for moderate pain. -Take NSAIDs sporadically only for severe pain. -Monitor headaches w PCP. PCOS (polycystic ovarian syndrome) 01/13/2023 Class 1 obesity 01/13/2023 Assessment & Plan (07/17/2023 1:28 PM EDT): Today extensive discussion was done about life style modifications I advise healthy diet (low calorie) and cardiovascular exercise Patient will consider to be refer to weight management on next appointment Essential hypertension 01/13/2023 Assessment & Plan (05/29/2025 10:22 AM EDT): Today blood pressure is elevated, she reports blood pressure readings are very similar at home I advised low-sodium diet and weight reduction I advised to continue with amlodipine 10 mg plus losartan 100 mg daily and I added today hydrochlorothiazide 12.5 mg daily I advised to log her blood pressure for her next appointment Assessment & Plan (07/30/2024 10:51 AM EDT): Maintenance: BMP: up to date Lipid Panel: up to date ASCVD Risk: high she is on atorvastatin 40mg daily I advise: - Aerobic exercise to reduce BP. Initial goal of 30 min walk 3-5x/week. Increase as tolerated. - low-sodium diet (goal: <2g/day) and heart healthy diet such as DASH to reduce BP and prevent ASCVD. - Home BP monitoring 1-2 x day with goal of <140/90. - Seek immediate medical attention for chest pain, palpitations, SOB, syncope, or sudden changes in mental status. - Do not change or discontinue current prescriptions without first consulting health care provider Assessment & Plan (05/03/2024 1:59 PM EDT): Its advise: - Aerobic exercise to reduce BP. Initial goal of 30 min walk 3-5x/week. Increase as tolerated. - low-sodium diet (goal: <2g/day) and heart healthy diet such as DASH to reduce BP and prevent ASCVD. - Home BP monitoring 1-2 x day with goal of <140/90. - Seek immediate medical attention for chest pain, palpitations, SOB, syncope, or sudden changes in mental status. - Do not change or discontinue current prescriptions without first consulting health care provider Assessment & Plan (07/17/2023 1:26 PM EDT): Today high reading, patient reports she is taking her medication every day - Aerobic exercise to reduce BP. Initial goal of 30 min walk 3-5x/week. Increase as tolerated. - low-sodium diet (goal: <2g/day) and heart healthy diet such as DASH to reduce BP and prevent ASCVD. - Home BP monitoring 1-2 x day with goal of <140/90. - Seek immediate medical attention for chest pain, palpitations, SOB, syncope, or sudden changes in mental status. -I added today amlodipine 5mg daily - Do not change or discontinue current prescriptions without first consulting health care provider Assessment & Plan (06/14/2023 10:01 AM EDT): - Aerobic exercise to reduce BP. Initial goal of 30 min walk 3-5x/week. Increase as tolerated. - low-sodium diet (goal: <2g/day) and heart healthy diet such as DASH to reduce BP and prevent ASCVD. - Home BP monitoring 1-2 x day with goal of <140/90. - Seek immediate medical attention for chest pain, palpitations, SOB, syncope, or sudden changes in mental status. - Do not change or discontinue current prescriptions without first consulting health care provider Assessment & Plan (05/19/2023 3:08 PM EDT): Pt w chronically uncontrolled HTN not compliant w Rx. Also is a tobacco smoker. After she took her regular BP Rx this morning (after a long period of not taking it), BP seems to be correcting, and last time it was checked it was 158/90. Denies alarming Sx concerning a HTN emergency, and completed a normal exam today. EKG done today is normal. Only noted Q wave in lead III but not in any other leads. -I refilled her Losartan/HCTZ 100/25 mg today and encouraged her to take medication consistently on a daily basis. -Advise to check BP at home and bring readings to PCP to eval if need to add another BP med. -Advise tobacco cessation. -Advise to avoid NSAIDs, given these can also worsen her BP. -Alarm signs and Sx discussed. -Will check basic labs today to f/u results w PCP.---schedule appt for 3 weeks Acquired hypothyroidism 01/13/2023 Assessment & Plan (07/30/2024 10:51 AM EDT): Last TSH normal, patient taking her medication regularly Assessment & Plan (06/14/2023 10:02 AM EDT): TSH will be check on next appointment Assessment & Plan (05/19/2023 3:04 PM EDT): Pt reports not taking her levothyroxine for a long time (since last summer). -will check TFT for baseline and resume today her levothyroxine. -will follow w PCP. Pain in left wrist 03/18/2020 Tendinitis of left wrist 03/16/2020 Encounters Date Type Department Care Team Description 07/15/2025 Telephone [facility] [address] [place] [address] Nitza Henderson NP Specimen label 07/14/2025 9:40 AM EDT Office Visit [facility] [address] [place] [address] Nitza Henderson NP Vesicles (Primary Dx); Cellulitis of face 07/14/2025 Travel 07/09/2025 Refill [facility] [address] [place] [address] Sejal Viramontes MD Gastroesophageal reflux disease, unspecified whether esophagitis present 06/24/2025 Refill [facility] [address] [place] [address] Sejal Viramontes MD Chronic right shoulder pain 06/18/2025 3:20 PM EDT Office Visit [facility] [address] [place] [address] Lloyd Escoabr MD Tinea pedis of left foot (Primary Dx) 06/18/2025 Travel 06/16/2025 Telephone [facility] [address] [place] [phone] Sejal Viramontes MD 06/12/2025 Results Follow-Up [facility] [address] [place] [phone] Sejal Viramontes MD Basic Metabolic Panel 06/02/2025 Orders Only [address] [address] Sejal Viramontes MD Essential hypertension (Primary Dx) 06/02/2025 Orders Only [facility] [address] [place] [phone] Sejal Viramontes MD Hyperchylomicronemia (Primary Dx); Hypokalemia 05/29/2025 9:00 AM EDT Office Visit [address] [address] Sejal Viramontes MD Essential hypertension; Prediabetes; Colon cancer screening; Class 1 obesity due to excess calories with serious comorbidity and body mass index (BMI) of 34.0 to 34.9 in adult; Trigger middle finger of right hand; Numbness and tingling in right hand 05/29/2025 Travel 05/26/2025 Telephone [facility] [address] [place] [phone] Sejal Viramontes MD Chart Prep 05/26/2025 Refill [facility] [address] [place] [address] Sejal Viramontes MD Acquired hypothyroidism 05/22/2025 Travel 05/21/2025 Patient Outreach [facility] [address] [place] [address] Sejal Viramontes MD Pre-visit Planning (SDOH screening negative and tobacco screening positive) from Last 3 Months Immunizations Immunization Administration Dates Next Due Influenza, IIV3, injectable 07/20/2016 Moderna Covid-19 Vaccine 12+ 09/24/2021,12/17/19 21,11/19/2020 Pneumococcal Conjugate PCV 13 08/03/2016 Tdap 03/18/2020 Family History Medical History Relation Name Comments Glaucoma Maternal Grandmother Relation Name Status Comments Maternal Grandmother Social History Tobacco Use Types Packs/Day Years Used Date Smoking Tobacco: Every Day Cigarettes Passive Smoke Exposure: Current Smokeless Tobacco: Never Tobacco Cessation:Ready to Q uit: Not Asked; Counseling Given: Not Answered Alcohol Use Standard Drinks/Week Comments Defer 0 (1 standard drink = 0.6 oz pur e alcohol) Depression Answer Date Recorded Patient Health Questionnaire-9 Score 0 05/29/2025 Patient Health Questionnaire-9 Score 0 05/29/2025 Last PHQ-9: Questionnaire Data Not on file 0 05/29/2025 Housing Stability Answer Date Recorded What is your housing situation today? I have robertaniyah chow 05/21/[address] you [...] Orientation Straight 09/05/2022 10 :37 AM EDT Last Filed Vital Signs Vital Sign Reading [...] oz) 07/14/2025 9:25 A M EDT Height 165.1 cm (5' 5 ) 05/29/2025 9:10 AM EDT Body Mass Index 33.18 05/29/2025 9:10 AM EDT Plan of Treatment Upcoming Encounters Date Type Department Care Team (Late st Contact Info) Description 08/01/2025 9:00 AM EDT Office Visit [facility] [address] [place] [phone] Sejal Viramontes MD [address] [place] [address] Health Maintenance Due Date Last Done Comments CT Colonography 1973 Colonoscopy 1973 Colorectal Cancer Screening 1973 FIT DNA/Cologuard 1973 FIT 1973 FOBT 1973 Sigmoidoscopy 1973 Family Planning (PISQ) 1988 Hepatitis B Vaccines (1 of 3 - 19+ 3-dose series) 1992 Pneumococcal Vaccine: 50+ Years (2 of 2 - PPSV23) 09/28/2016 08/03/2016 Zoster Vaccines (1 of 2) 2023 Pap Smear 03/15/2025 03/15/2022 Dental Oral Exam 06/10/2025 12/10/2024, 08/24/2023 Dental Prophylaxis 06/10/2025 12/10/2024, 08/28/2023 COVID-19 Vaccine ( season) 2025 09/24/2021, 12/17/2020, 11/19/2020 Influenza Vaccine (#1) 2025 07/20/2016 Mammogram 07/16/2025 07/16/2024, 01/04, 01/13/2022 Dental X-Ray: Bitewings 12/11/2025 12/10/2024, 08/24 SDOH Screening 05/21/2026 05/21/2025 Alcohol/Substance Use Screening 05/29/2026 05/29/2025 Depression Screening 05/29/2026 05/29/2025, 05/29/20 25 Diabetes: Hemoglobin A1C 05/29/2026 025, 05/03/2024, 02/20/2024, Additional history exists Disability Screening 05/29/2026 05/29/2025 Tobacco Screening 06/18/2026 06/18/2025 Dental X-Ray: Full Mouth 08/25/2026 08/24/2023, 08/06 Cervical Cancer Screening 03/15/2027 HPV/Cotest 03/15/2027 03/15/2022 DTaP/Tdap/Td Vaccines (2 - Td or Tdap) 03/18/2030 03/18/2020 Lipid Panel 06/02/2030 06/02/2025, 02/04, 08/24/2023, Additional history exists RSV Patients and Patients Aged 60 years or older (1 - 1-dose 75+ series) 2048 HIV Screening Completed 06/02/2025, 02/04, 12/21/2021 Hepatitis C Screening Completed 06/02/2025 , 02/20/2024, 12/21/2021 HIB Vaccines Aged Out No longer eligi ble based on patient's age to complete this topic HPV Vaccines Aged Out No longer eligi ble based on patient's age to complete this topic Hepatitis A Vaccines Aged Out No long er eligible based on patient's age to complete this topic IPV Vaccines Aged Out No longer eligi ble based on patient's age to complete this topic Meningococcal B Vaccine Aged Out No l onger eligible based on patient's age to complete this topic Meningococcal Vaccine Aged Out No robert jaden eligible based on patient's age to complete this topic RSV under 20 months Aged Out No longe r eligible based on patient's age to complete this topic Rotavirus Vaccines Aged Out No longer eligible based on patient's age to complete this topic Procedures Procedure Name Priority Date/Time Associated Diagnosis Comments BASIC METABOLIC PANEL Routine 06/12/2025 12:30 PM EDT Hypokalemia TSH W/REFLEX TO FT4 Routine 06/02/2025 9 :36 AM EDT Prediabetes Essential hypertension Class 1 obesity due to excess calories with serious comorbidity and body mass index (BMI) of 34.0 to 34.9 in adult VITAMIN D,25-OH,TOTAL,IA Routine 06/02/2025 9:36 AM EDT Prediabetes Essential hypertension Class 1 obesity due to excess calories with serious comorbidity and body mass index (BMI) of 34.0 to 34.9 in adult LIPID PANEL, STANDARD Routine 06/02/2025 9:36 AM EDT Prediabetes Essential hypertension Class 1 obesity due to excess calories with serious comorbidity and body mass index (BMI) of 34.0 to 34.9 in adult HEPATITIS C AB W/REFL TO HCV RNA, QN, PCR Routine 06/02/2025 9:36 AM EDT Prediabetes HIV 1/2 ANTIGEN/ANTIBODY, FOURTH GENERATION W/RFL Routine 06/02/2025 9:36 AM EDT Prediabetes COMPREHENSIVE METABOLIC PANEL Routine 06/02/2025 9:36 AM EDT Prediabetes CBC WITH AUTO DIFFERENTIAL Routine 06/02/2025 9:36 AM EDT Prediabetes POCT GLYCATED HEMOGLOBIN, TOTAL Routine 05/29/2025 9:20 AM EDT Prediabetes POCT GLUCOSE Routine 05/29/2025 9:09 AM EDT Prediabetes PROPHYLAXIS - ADULT Routine 12/10/2024 2 :30 PM EST BITEWINGS - 4 RADIOGRAPHIC IMAGES Routine 12/10/2024 2:30 PM EST PERIODIC ORAL EVALUATION - ESTABLISHED PATIENT Routine 12/10/2024 2:30 PM EST Encounter for dental examination Periodontal disease Dental calculus BI MAMMOGRAM SCREENING TOMOSYNTHESIS BILATERAL Routine 07/16/2024 2:30 PM EDT Encounter for screening mammogram for malignant neoplasm of breast INTRAORAL - COMPLETE SERIES OF RADIOGRAPHIC IMAGES Routine 08/24/2023 2:30 PM EDT Dental caries Periodontal disease THINPREP IMAGING PAP AND HPV MRNA E6/E7, WITH CT/NG, TRICHOMONAS Routine 03/15/2022 9:48 AM EDT from Last 3 Months or Most Recently Relevant to Health Maintenance Results * (ABNORMAL) Basic Metabolic Panel (06/12/2025 12:30 PM EDT) Sodium 141 135 - 145 mmol/L [facility] Potassium 3.1(L) 3.3 - 5.1 mmol/L [facility] Chloride 104 96 - 108 mmol/L [facility] Carbon Dioxide 27 22 - 29 mmol/L [facility] Anion Gap 13 12 - 20 [facility] Urea Nitrogen (BUN) 16 9 - 16 mg/dL [facility] Creatinine, Serum 0.87 0.5 - 1.4 mg/dL [facility] Estimated Glomerular Filt Rate >60 [facility] Comment:Chronic Kidney Disea se: Estimated GFR < 60 mL/min/[id number] Kidney Disease: Estimated GFR < 15 mL/min/1.73m2 Glucose 111 60 - 115 mg/dL [facility] Calcium 9.5 8.4 - 10.2 mg/dL [facility] Blood Venous blood specimen / Unknown 06/12/2025 12:30 PM EDT 06/12/2025 12:51 PM EDT us Sejal Recinos MD LAB BLOOD ORDERABLES Final Result Performing Organization Address [facility]/ZIP Co de Phone Number [facility] [address] [place] [address] [phone] * Vitamin D, 25-Hydroxy, Total, Immunoassay (06/02/2025 9:36 AM EDT) Vitamin D 25-OH Total >154.2 >30 ng/mL [facility] Comment: Health Based Reference Values*< 20 ng/mL [id number] ng/mL Insufficient> 30 ng/mL Sufficient*Suresh SIERRA. N Engl J Med. 2007;357:266-280There is no well-established upper level of normal vitamin Dlevels. Some laboratories use 50 ng/mL as an upper limit ofnormal. However, toxicity is patient-dependent and may occurat any level. Careful correlation with the patient'spresentation is necessary and, if there is concern forvitamin D toxicity, treatment should be consideredirrespective of the serum level.Care must be taken in interpreting Vitamin D results fromdifferent laboratories and methodologies. Published datademonstrated that results from patients undergoinghemodialysis may show a negative bias when tested withvarious automated 25-OH vitamin D assays when compared toLC-MS/MS.When testing samples from patients whose predominant form ofVitamin D is Vitamin D2, such as patients receiving VitaminD2 supplementation, results that are subtherapeutic shouldbe confirmed with another method such as LC-MS/MS. Blood Venous blood specimen / Unknown 06/02/2025 9:36 AM EDT 06/02/2025 11:31 AM EDT us Sejal Recinos MD LAB BLOOD ORDERABLES Final Result Performing Organization Address [facility]/ZIP Co de Phone Number [facility] [address] [place] [address] [phone] * TSH with Reflex to Free T4 (06/02/2025 9:36 AM EDT) TSH reflex Free T4 3.37 0.32 - 4.0 uIU/mL [facility] Blood Venous blood specimen / Unknown 06/02/2025 9:36 AM EDT 06/02/2025 11:31 AM EDT Sejal Recinos MD LAB BLOOD ORDERABLES Final Result [facility] [address] [place] [address] [phone] * (ABNORMAL) CBC auto differential (06/02/2025 9:36 AM EDT) White Blood Count 10.8 4.8 - 10.8 X10*3/uL [facility] Red Blood Count 4.57 4.20 - 5.50 X10*6/uL [facility] Hemoglobin 14.2 12.0 - 16.0 g/dl [facility] Hematocrit 41.5 37.0 - 47.0 % [facility] Mean Corpuscular Volume 90.8 80.0 - 98.0 fL [facility] Mean Corpuscular Hemoglobin 31.1 27.0 - 33.0 pg [facility] Mean Corpuscular HGB Conc 34.2 31.0 - 35.0 g/dl [facility] Red Cell Distribution Width 12.3 11.0 - 16.0 % [facility] Platelet Count 306 160 - 400 X10*3/uL [facility] Mean Platelet Volume 10.9 9.4 - 12.3 fL [facility] Neutrophils Percent Auto 69.1 45 - 73 % [facility] Imm Gran Pct Auto 0.5(H) 0.0 - 0.4 % [facility] Lymphocytes Percent Auto 23.1 20 - 40 % [facility] Monocytes Percent Auto 4.5 2 - 11 % [facility] Eosinophils Percent Auto 2.1 0 - 4 % [facility] Basophils Percent Auto 0.7 0 - 2 % [facility] NRBC Pct Auto 0.0 0.0 - 0.2 /100WBC [facility] Neutrophils Absolute Auto 7.5 2.0 - 8.3 x10*3/uL [facility] Imm Gran Abs Auto 0.05(H) 0.00 - 0.03 X10*3/uL [facility] Lymphocytes Absolute Auto 2.5 1.2 - 4.9 X10*3/uL [facility] Monocytes Absolute Auto 0.5 0.1 - 1.2 X10*3/uL [facility] Eosinophils Absolute Auto 0.2 0.0 - 0.4 X10*3/uL [facility] Basophils Absolute Auto 0.1 0.0 - 0.2 X10*3/uL [facility] NRBC Abs Auto 0.000 0.0 - 0.012 X10*3/uL [facility] Blood Venous blood specimen / Unknown 06/02/2025 9:36 AM EDT 06/02/2025 11:33 AM EDT us Sejal Recinos MD LAB BLOOD ORDERABLES Final Result Performing Organization Address [facility] Co de Phone Number [facility] [address] [place] [phone] * Hepatitis C Antibody with Reflex to HCV, RNA, Quantitative, Real-Time PCR (06/02/2025 9:36 AM EDT) Hepatitis C Antibody Nonreactive Nonreactive [facility] Comment:Antibodies to HCV no t detected; does not exclude early acuteHCV infection. Blood Venous blood specimen / Unknown 06/02/2025 9:36 AM EDT 06/02/2025 11:31 AM EDT us Sejal Recinos MD LAB BLOOD ORDERABLES Final Result [facility] [address] [place] [address] [phone] * HIV-1/2 Antigen and Antibodies, Fourth Generation, with Reflexes (06/02/2025 9:36 AM EDT) HIV AB/AG Nonreactive Nonreactive [facility] Comment:HIV-1 p24 Ag and/or HIV-1/HIV-2 Ab not detected.A test result that is nonreactive does not exclude thepossibility of exposure to or infection with HIV-1 and/orHIV-2. Nonreactive results in this assay for individualswith prior exposure to HIV-1 and/or HIV-2 may be due toantigen and antibody levels that are below the limit ofdetection of this assay.The Integrate HIV Ag/Ab Combo assay result andsupplemental assay results should be interpreted inconjunction with the patient's clinical presentation,history and other laboratory results. If the results areinconsistent with clinical evidence, additional testing issuggested to confirm the result. Blood Venous blood specimen / Unknown 06/02/2025 9:36 AM EDT 06/02/2025 11:31 AM EDT us Sejal Recinos MD LAB BLOOD ORDERABLES Final Result [facility] [address] [place] [address] [phone] * (ABNORMAL) Lipid Panel, Standard (06/02/2025 9:36 AM EDT) Triglycerides 228(H) <150 mg/dL [facility] Comment:Desirable Triglyceri de: less than 150 mg/dLBorderline High Triglyceride 150-199 mg/dLHigh Triglyceride: 200-499 mg/dLVery High Triglyceride: greater than or equal to 5OO mg/dL Cholesterol 205(H) <200 mg/dL [facility] Comment:Desirable Cholestero l: less than 200 mg/dLBorderline High Cholesterol: 200-239 mg/dLHigh Cholesterol: greater than 239 mg/dL LDL Cholesterol Calculated 119(H) <100 mg/dL [facility] Comment:Desirable LDL: less than 100 mg/dLNear Optimal/Above Optimal LDL: 110- 129 mg/dLBorderline High LDL: 130-159 mg/dLHigh LDL: 160-189 mg/dLVery High LDL: greater than or equal to 190 mg/dL HDL Cholesterol 41 >40 mg/dL [facility] Comment:Desirable HDL: great er than 40 mg/dL Note: This HDL assay may give artificially low results in patients with liver disease. Blood Venous blood specimen / Unknown 06/02/2025 9:36 AM EDT 06/02/2025 11:31 AM EDT us Sejal Recinos MD LAB BLOOD ORDERABLES Final Result [facility] [address] [place] [address] [phone] * (ABNORMAL) Comprehensive Metabolic Panel (06/02/2025 9:36 AM EDT) Sodium 141 135 - 145 mmol/L [facility] Potassium 3.2(L) 3.3 - 5.1 mmol/L [facility] Chloride 107 96 - 108 mmol/L [facility] Carbon Dioxide 26 22 - 29 mmol/L [facility] Anion Gap 11(L) 12 - 20 [facility] Urea Nitrogen (BUN) 16 9 - 16 mg/dL [facility] Creatinine, Serum 1.04 0.5 - 1.4 mg/dL [facility] Estimated Glomerular Filt Rate 56 [facility] Comment:Chronic Kidney Disea se: Estimated GFR < 60 mL/min/1.46j7Nvuejy Kidney Disease: Estimated GFR < 15 mL/min/1.73m2 Glucose 145(H) 60 - 115 mg/dL [facility] Calcium 9.3 8.4 - 10.2 mg/dL [facility] Bilirubin, Total 0.7 0.0 - 1.0 mg/dL [facility] Aspartate Amino Transferase 30 5 - 31 U/L [facility] Alanine Aminotransferase 29 0 - 31 U/L [facility] Total Protein 8.0 6.5 - 8.0 g/dL [facility] Albumin Level 4.8 3.5 - 5.0 g/dL [facility] Alkaline Phosphatase 98 39 - 117 U/L [facility] Blood Venous blood specimen / Unknown 06/02/2025 9:36 AM EDT 06/02/2025 11:31 AM EDT Sejal Recinos MD LAB BLOOD ORDERABLES Final Result [facility] [address] [place] [phone] * (ABNORMAL) POCT HGB A1C (05/29/2025 9:20 AM EDT) Hemoglobin A1C 6.1(A) 4.0 - 5.7 % QC Media Lot # [id number] Lot# Expiration Date Blood 05/29/2025 9:20 AM EDT Sejal Recinos MD POINT OF CARE TEST EN TER/EDIT ORDERABLES Final Result * (ABNORMAL) POCT Glucose (05/29/2025 9:09 AM EDT) Glucose Blood, POC 201(A) 60 - 200 mg/dL QC Media Lot # [id number] Lot# Expiration Date [id number] Blood Capillary blood specimen / Unknown 05/29/2025 9:09 AM EDT Sejal Recinos MD POINT OF CARE TEST EN TER/EDIT ORDERABLES Final Result * BI Mammogram Screening Tomosynthesis Bilateral (07/16/2024 2:30 PM EDT) Anatomical Region Laterality Modality Breast Bilateral Mammography 07/16/2024 2:30 PM EDT Narrative 08/06/2024 4:23 PM EDT [address] [place] [address] Mammography Report Signed Patient: Yanelis Llanes MR#: [id number] : 1975 Acct:[id number] Age/Sex: 49 / F ADM Date: 07/16/24 Loc: HO.MAMMO Attending Dr: Sejal Recinos MD Ordering Physician: Sejal Viramontes MD Results: 1Negative Date of Service: 07/16/24 Follow Up: 1 Year From Orig inal Mammogram Procedure(s): MM tomosynthesis screening BI Accession Number(s): [id number] cc: Sejal Viramontes MD EXAMINATION: MM SCREENING DIGITAL BREAST TOMOSYNTHESIS, BILATERAL CLINICAL INFORMATION: Screening. Asymptomatic. COMPARISON: Mammography: Comparison is made with available priors TECHNIQUE: Digital breast mammography with tomosynthesis is performed in both the craniocaudal and mediolateral oblique views along with computer-aided detection (CAD). FINDINGS: There are scattered areas of fibroglandular density (ACR BI-RADS breast composition Category b). There are no significant masses, abnormal calcifications, or other abnormalities. MM/MM tomosynthesis screening BI IMPRESSION: No mammographic evidence of malignancy. ASSESSMENT: BI-RADS BI-RADS 1 - Negative RECOMMENDATION: Routine annual mammography screening. 1 year F/U This examination should not preclude the clinical evaluation of a suspicious palpable abnormality. This patient's information was entered into a reminder system with a target due date for their next mammogram. Electronically signed by: Kim Dye DO 08/06/2024 04:20 PM EDT Dictated By: Kim Dye DO Signed By: <Electronically signed by Kim Dye DO in OV> 08/06/24 1620 DD/ 1430 TD/TT: 07/16/24 1455 Ink Maker: Procedure Note Donotuseinterpreter, Image - 08/06/[address] [place] [address] Mammography Report Signed Patient: Kameron Llanes#: [id number] : 1975Acct:[id number] Age/Sex: 49 / FADM Date: 07/16/24 Loc: HO.MAMMO Attending Dr: Sejal Recinos MD Ordering Physician: Sejal Viramontes MDResults: 1Negative Date of Service: 07/16/24Follow Up: 1 Year From Orig ina Mammogram Procedure(s): MM tomosynthesis screening BI Accession Number(s): [id number] cc: Sejal Viramontes MD EXAMINATION: MM SCREENING DIGITAL BREAST TOMOSYNTHESIS, BILATERAL CLINICAL INFORMATION: Screening. Asymptomatic. COMPARISON: Mammography: Comparison is made with available priors TECHNIQUE: Digital breast mammography with tomosynthesis is performed in both the craniocaudal and mediolateral oblique views along with computer-aided detection (CAD). FINDINGS: There are scattered areas of fibroglandular density (ACR BI-RADS breast composition Category b). There are no significant masses, abnormal calcifications, or other abnormalities. MM/MM tomosynthesis screening BI IMPRESSION: No mammographic evidence of malignancy. ASSESSMENT: BI-RADS BI-RADS 1 - Negative RECOMMENDATION: Routine annual mammography screening. 1 year F/U This examination should not preclude the clinical evaluation of a suspicious palpable abnormality. This patient's information was entered into a reminder system with a target due date for their next mammogram. Electronically signed by: Kim Dye DO 08/06/2024 04:20 PM EDT Dictated By: Kim Dye DO Signed By: <Electronically signed by Kim Dye DO in OV> 08/06/24 1620 DD/ 1430 TD/TT: 07/16/24 1455 Ink Maker: us Sejal Recinos MD IMG BI PROCEDURES Nash frederick Result - Final * THINPREP TIS PAP AND HPV mRNA E6/E7, CT/NG, TRICH (03/15/2022 9:48 AM EDT) Chlamydia trachomatis RNA, TMA, Urogenital NOT DETECTED NOT DETECTED [facility] Clinical Information: None given [facility] COMMENT SEE COMMENT [facility] Comment: The analytical performance characteristics of this assay, when used to test SurePath(TM) specimens have been determined by [employer]. The modifications have not been cleared or approved by the FDA. This assay has been validated pursuant to the CLIA regulations and is used for clinical purposes. For additional information, please refer to https://education.[employer]/faq/CVR376 (This link is being provided for information/ educational purposes only.) COMMENT SEE COMMENT [facility] Comment: EXPLANATORY NOTE: The Pap is a screening test for cervical cancer. It is not a diagnostic test and is subject to false negative and false positive results. It is most reliable when a satisfactory sample, regularly obtained, is submitted with relevant clinical findings and history, and when the Pap result is evaluated along with historic and current clinical information. COMMENT: This Pap test has been evaluated with computer assisted technology. [facility] Advanced Practice Psychiatric Nurse: SEE COMMENT [facility] Comment: MPG, CT(ASCP) CT screening location: [place] [address] HPV nRNA E6/E7 Not Detected Not Detected [facility] Comment: Methodology: Food And Beverage Director-Mediated Amplification This assay detects E6/E7 viral messenger RNA (mRNA) from 14 high-risk HPV types (16,18,31,33,35,39,45,51,52,56,58,59,66,68). The analytical performance characteristics of this assay have been determined by [employer]. The modifications have not been cleared or approved by the FDA. This assay has been validated pursuant to the CLIA regulations and is used for clinical purposes. For additional information, please refer to http://education.[employer]/faq/VRR855h7 (This link if provided for information/ educational purposes only.) Interpretation/Re sult: Negative for intraepithelial lesion or malignancy. [facility] LMP: NONE GIVEN [facility] Neisseria gonorrhoeae RNA, TMA, Urogenital NOT DETECTED NOT DETECTED [facility] Prev. BX: NONE GIVEN [facility] Prev. PAP: NONE GIVEN [facility] SOURCE: None given [facility] Statement Of Adequacy: SEE COMMENT [facility] Comment: Satisfactory for evaluation. Endocervical/transformation zone component present. Age and/or menstrual status not provided Trichomonas vaginalis, QL, TMA, PAP Vial NOT DETECTED NOT DETECTED [facility] Comment: The analytical performance characteristics of this assay have been determined by [employer]. The modifications have not been cleared or approved by the FDA. This assay has been validated pursuant to the CLIA regulations and is used for clinical purposes. For additional information, please refer to http://education.[employer]/ faq/Trichomonastma (This link is being provided for information/ educational purposes only.) Chlamydia trachomatis RNA, TMA, Urogenital NOT DETECTED NOT DETECTED [facility] Clinical Information: None given [facility] COMMENT SEE COMMENT [facility] Comment: The analytical performance characteristics of this assay, when used to test SurePath(TM) specimens have been determined by [employer]. The modifications have not been cleared or approved by the FDA. This assay has been validated pursuant to the CLIA regulations and is used for clinical purposes. For additional information, please refer to https://education.[employer]/faq/WAK287 (This link is being provided for information/ educational purposes only.) COMMENT SEE COMMENT [facility] Comment: EXPLANATORY NOTE: The Pap is a screening test for cervical cancer. It is not a diagnostic test and is subject to false negative and false positive results. It is most reliable when a satisfactory sample, regularly obtained, is submitted with relevant clinical findings and history, and when the Pap result is evaluated along with historic and current clinical information. COMMENT: This Pap test has been evaluated with computer assisted technology. [facility] Advanced Practice Psychiatric Nurse: SEE COMMENT [facility] Comment: MPG, CT(ASCP) CT screening location: [address] [address] HPV nRNA E6/E7 Not Detected Not Detected [facility] Comment: Methodology: Food And Beverage Director-Mediated Amplification This assay detects E6/E7 viral messenger RNA (mRNA) from 14 high-risk HPV types (16,18,31,33,35,39,45,51,52,56,58,59,66,68). The analytical performance characteristics of this assay have been determined by [employer]. The modifications have not been cleared or approved by the FDA. This assay has been validated pursuant to the CLIA regulations and is used for clinical purposes. For additional information, please refer to http://On Networks.[employer]/faq/CCJ829z7 (This link if provided for information/ educational purposes only.) Interpretation/Re sult: Negative for intraepithelial lesion or malignancy. [facility] LMP: NONE GIVEN [facility] Neisseria gonorrhoeae RNA, TMA, Urogenital NOT DETECTED NOT DETECTED [facility] Prev. BX: NONE GIVEN [facility] Prev. PAP: NONE GIVEN [facility] SOURCE: None given [facility] Statement Of Adequacy: SEE COMMENT [facility] Comment: Satisfactory for evaluation. Endocervical/transformation zone component present. Age and/or menstrual status not provided Trichomonas vaginalis, QL, TMA, PAP Vial NOT DETECTED NOT DETECTED [facility] Comment: The analytical performance characteristics of this assay have been determined by [employer]. The modifications have not been cleared or approved by the FDA. This assay has been validated pursuant to the CLIA regulations and is used for clinical purposes. For additional information, please refer to http://On Networks.[employer]/ faq/Trichomonastma (This link is being provided for information/ educational purposes only.) Chlamydia trachomatis RNA, TMA, Urogenital NOT DETECTED NOT DETECTED [facility] Clinical Information: None given [facility] COMMENT SEE COMMENT [facility] Comment: The analytical performance characteristics of this assay, when used to test SurePath(TM) specimens have been determined by [employer]. The modifications have not been cleared or approved by the FDA. This assay has been validated pursuant to the CLIA regulations and is used for clinical purposes. For additional information, please refer to https://On Networks.[employer]/faq/RPP080 (This link is being provided for information/ educational purposes only.) COMMENT SEE COMMENT [facility] Comment: EXPLANATORY NOTE: The Pap is a screening test for cervical cancer. It is not a diagnostic test and is subject to false negative and false positive results. It is most reliable when a satisfactory sample, regularly obtained, is submitted with relevant clinical findings and history, and when the Pap result is evaluated along with historic and current clinical information. COMMENT: This Pap test has been evaluated with computer assisted technology. [facility] Advanced Practice Psychiatric Nurse: SEE COMMENT [facility] Comment: MPG, CT(ASCP) CT screening location: [address] [address] HPV nRNA E6/E7 Not Detected Not Detected [facility] Comment: Methodology: Food And Beverage Director-Mediated Amplification This assay detects E6/E7 viral messenger RNA (mRNA) from 14 high-risk HPV types (16,18,31,33,35,39,45,51,52,56,58,59,66,68). The analytical performance characteristics of this assay have been determined by [employer]. The modifications have not been cleared or approved by the FDA. This assay has been validated pursuant to the CLIA regulations and is used for clinical purposes. For additional information, please refer to http://On Networks.[employer]/faq/BUL730c9 (This link if provided for information/ educational purposes only.) Interpretation/Re sult: Negative for intraepithelial lesion or malignancy. [facility] LMP: NONE GIVEN [facility] Neisseria gonorrhoeae RNA, TMA, Urogenital NOT DETECTED NOT DETECTED [facility] Prev. BX: NONE GIVEN [facility] Prev. PAP: NONE GIVEN [facility] SOURCE: None given [facility] Statement Of Adequacy: SEE COMMENT [facility] Comment: Satisfactory for evaluation. Endocervical/transformation zone component present. Age and/or menstrual status not provided Trichomonas vaginalis, QL, TMA, PAP Vial NOT DETECTED NOT DETECTED [facility] Comment: The analytical performance characteristics of this assay have been determined by [employer]. The modifications have not been cleared or approved by the FDA. This assay has been validated pursuant to the CLIA regulations and is used for clinical purposes. For additional information, please refer to http://education.[employer]/ faq/Trichomonastma (This link is being provided for information/ educational purposes only.) 03/15/2022 9:48 AM EDT Sejal Recinos MD LAB PATHOLOGY ORDERAB LES Final Result [facility] [address] from Last 3 Months or Most Recently Relevant to Health Maintenance Insurance [facility] , [address] [place] [address] DENTAL - [facility] Care Teams Flyer Maker Relationship Specialty Start Date End Date Sejal Viramontes MD [address] [place] [phone] PCP - General Family Medicine 12/21/21
== END 2025-07-14 10:57 | disposition home or self-care (01) ==
LOC: HO.HHCLNP 10:56
PROVIDERS: Visit Provider Nurse Practitioner Family
DX: Z13.89 Encounter for screening for other disorder (principal)

== ENCOUNTER 2025-07-15 12:20 | Outpatient (REF) | payer OTHER, SELFPAY ==
--- OUTSIDE RECORDS SUMMARY | 2025-07-14 09:40 | XMS_ITS | Encounter Summary ---
Author Organization [employer] Address [address] [facility] 7t [place] [address] Care Team Providers Care Supervisor [employer]oder [employer] Name Role Phone Sejal Viramontes MD Primary Care Provide r Reason for Visit * Reason Comments face infection Encounter Details Date Type Department Care Team ([facility] st Contact Info) Description 07/14/2025 9:40 AM EDT Office Visit [facility] [address] [place], [place] [phone] Nitza Henderson NP [address] [place] [address] Vesicles (Primary Dx); Cellulitis of face Social History Tobacco Use Types Packs/Day Years Used Date Smoking Tobacco: Every Day Cigarettes Passive Smoke Exposure: Current Smokeless Tobacco: Never Alcohol Use Standard Drinks/Week Comments Defer 0 (1 standard drink = 0.6 oz pur e alcohol) Depression Answer Date Recorded Patient Health Questionnaire-9 Score 0 05/29/2025 Patient Health Questionnaire-9 Score 0 05/29/2025 Last PHQ-9: Questionnaire Data Not on file 0 05/29/2025 Housing Stability Answer Date Recorded What is your housing situation today? I have robert chow 05/21/[address] you li ve. Do you have problems with any of the following? None of the above 05/21/2025 Food Insecurity Answer Date Recorded Within the past 12 months, y ou worried that your food would run out before you got money to buy more: Never True 05/21/2025 Within the past 12 months,th e food you bought just didn't last and you didn't have enough money to get more: Never True Transportation Answer Date Recorded In the past 12 months, has l ack of transportation kept you from medical appts, meetings, work or from getting things needed for daily living? No 05/21/2025 Utilities Answer Date Recorded In the past 12 months, has t he electric, gas, oil or water company threatened to shut off services in your home? No 05/21/2025 Depression Answer Date Recorded Patient Health Questionnaire-2 Score 0 05/29/2025 Internet Access Answer Date Recorded Internet Access Q1 Yes 05/21/2025 Internet Access Q2 Not on file 05/21/2025 Comments Unknown Sex and Gender Information Value Date Recorded Sex Assigned at Female 09/05/2022 10:37 AM EDT Legal Sex Female 10:37 AM EDT Gender Identity Female 09/05/2022 10:37 AM EDT Sexual Orientation Straight 09/05/2022 10 :37 AM EDT documented as of this encounter Last Filed Vital Signs Vital Sign Reading Time Taken Comments Blood Pressure 125/79 07/14/2025 9:25 AM EDT Pulse 73 07/14/2025 9:25 AM EDT Temperature 36.7 C (98.1 F) 07/14/2025 9:25 AM EDT Respiratory Rate 18 07/14/2025 9:25 AM EDT Oxygen Saturation 98% 07/14/2025 9:25 AM EDT Inhaled Oxygen Concentration - - Weight 90.4 kg (199 lb 6.4 oz) 07/14/2025 9:25 A M EDT Height - - Body Mass Index 33.18 05/29/2025 9:10 AM EDT documented in this encounter Progress Notes * Nitza Henderson NP - 07/14/2025 9:40 AM EDT Yanelis Llanes is a 50 y.o. female who presents to the office for Chief Complaint Patient presents with face infection Problem List[1] Medical History[2] Allergies[3] Yanelis Llanes, 50-year-old female - Recurrent episodes of itching and pain localized to the left side of the face, sometimes involving the ear - Most recent episode began Monday night (July 12, 2025), started with itching, followed by scratching and development of clear fluid-filled vesicles - Similar episode in June 2023, localized in the ear, treated with Augmentin, suspected otitis atthat time - Denies fever - Denies recent antibiotic use in the last 1 to 3 months - Denies recent tooth or ear procedures, hair dye use, or other local triggers Review of Systems Constitutional: Negative for activity change. Respiratory: Negative for apnea. Skin: Positive for color change and rash. BP 125/79 (BP Location: Left arm, Patient Position: Sitting, BP Cuff Size: Large adult) Pulse 73 Temp 98.1 ??F (36.7 ??C) (Temporal) Resp 18 Wt 199 lb 6.4 oz (90.4 kg) SpO2 98% BMI 33.18 kg/m?? Physical Exam Vitals reviewed. HENT: Head: Normocephalic and atraumatic. Nose: Nose normal. Eyes: Conjunctiva/sclera: Conjunctivae normal. Cardiovascular: Rate and Rhythm: Normal rate and regular rhythm. Pulmonary: Effort: Pulmonary effort is normal. Breath sounds: Normal breath sounds. Musculoskeletal: Cervical back: Normal range of motion and neck supple. Skin: Comments: Clustered vesicles/pustules, left cheek anterior to tragus, FROM of jaw Neurological: General: No focal deficit present. Mental Status: She is alert. - HEENT: Anterior to the left ear, there are clustered pustules, erythema, and tenderness. Tympanicmembranes are pearly haskins with a cone of light. Honey- colored exudate present. Results: No visits with results within 28 Day(s) from this visit. Latest known visit with results is: Orders Only on 06/02/2025 Component Date Value Ref Range Status Sodium 06/12/2025 141 135 - 145 mmol/L Final Potassium 06/12/2025 3.1 (L) 3.3 - 5.1 mmol/L Final Chloride 06/12/2025 104 96 - 108 mmol/L Final Carbon Dioxide 06/12/2025 27 22 - 29 mmol/L Final Anion Gap 06/12/2025 13 12 - 20 Final Urea Nitrogen (BUN) 06/12/2025 16 9 - 16 mg/dL Final Creatinine, Serum 06/12/2025 0.87 0.5 - 1.4 mg/dL Final Estimated Glomerular Filt Rate 06/12/2025 >60 Final Chronic Kidney Disease: Estimated GFR < 60 mL/min/[id number] Kidney Disease: Estimated GFR < 15 mL/min/1.73m2 Glucose 06/12/2025 111 60 - 115 mg/dL Final Calcium 06/12/2025 9.5 8.4 - 10.2 mg/dL Final Assessment & Plan Vesicles Orders: Herpes Simplex Virus (HSV) Culture and Typing; Future Cellulitis of face Assessment & Plan Vesicles: - Vesicular lesions anterior to the left ear are likely bacterial in origin, with differential diagnosis including herpetic (HSV) infection due to unilateral presentation. - Ordered HSV culture to rule out herpetic infection. If viral etiology confirmed, will consider antiviral therapy (valacyclovir) for future episodes. Cellulitis of face: - Facial cellulitis suspected to be bacterial, likely staphylococcal, given response to antibioticsand clinical appearance. - Prescribed Augmentin twice daily for seven days. Advised to continue antibiotics even if symptomsimprove. Recommended to take Augmentin with food to minimize gastrointestinal upset. Instructed to notify clinic if symptoms worsen. If infection stops responding, will repeat bacterial culture to assess for resistance. - Risks and side effects: Augmentin may cause stomach upset. Prescription - Amoxicillin-clavulanate (Augmentin) 875/125 mg, twice daily for 7 days; take with food; risk of stomach upset Current Medications[4] Based on our discussion, I have outlined the following instructions for you: - You will have a test done to check for herpes simplex virus infection. - Take Augmentin (your antibiotic) twice a day for seven days. Always take it with food to help prevent stomach upset, and keep taking it for the full seven days even if you start to feel better before you finish all the pills. - Contact the clinic if your symptoms get worse or if you stop getting better. Thank you again for your visit, and we look forward to supporting you in your journey to better health. This note was drafted using Ambient (AI) technology. The patient/patient's guardian has been informed and has consented to the use of this technology: Yes [1] Patient Active Problem List Diagnosis PCOS (polycystic ovarian syndrome) Class 1 obesity Essential hypertension Acquired hypothyroidism Tobacco use Migraine headache Hyperlipidemia Pain in left wrist Tendinitis of left wrist Weight gain Periodontal disease Dental calculus Localized gingival recession, minimal Hypersomnia Snoring Other fatigue Hypokalemia Prediabetes Witnessed episode of apnea Encounter for screening mammogram for malignant neoplasm of breast Menopause Right shoulder pain Encounter for preventive health examination Colon cancer screening Class 1 obesity due to excess calories with serious comorbidity and body mass index (BMI) of 34.0 to 34.9 in adult Trigger middle finger of right hand Numbness and tingling in right hand Cerebrospinal fluid viral culture positive for rubella Vesicles Cellulitis of face [2] Past Medical History: Diagnosis Date Disease of thyroid gland High cholesterol Hypertension Periodontal disease [3] No Known Allergies [4] Current Outpatient Medications: amLODIPine (Norvasc) 10 MG tablet, TAKE 1 TABLET BY MOUTH EVERY DAY IN THE MORNING, Disp: 30 tablet, Rfl: 11 amoxicillin-clavulanate (Augmentin) 875-125 MG tablet, Take 1 tablet by mouth 2 times daily for 7 days., Disp: 14 tablet, Rfl: 0 atorvastatin (Lipitor) 40 MG tablet, Take 1 tablet (40 mg) by mouth in the morning., Disp: 90 tablet, Rfl: 1 clotrimazole (Lotrimin) 1 % cream, Apply topically 2 times daily., Disp: 60 g, Rfl: 1 levothyroxine (Synthroid, Levoxyl) 150 MCG tablet, TAKE 1 TABLET BY MOUTH EVERY MORNING BEFORE BREAKFAST, Disp: 90 tablet, Rfl: 1 losartan (Cozaar) 100 MG tablet, TAKE 1 TABLET BY MOUTH EVERY DAY IN THE MORNING, Disp: 30 tablet, Rfl: 11 metoprolol succinate XL (Toprol XL) 25 MG 24 hr tablet, Take 1 tablet (25 mg) by mouth Once per day. Do not crush or chew., Disp: 30 tablet, Rfl: 11 naproxen (Naprosyn) 500 MG tablet, TAKE 1 TABLET BY MOUTH TWICE DAILY, Disp: 30 tablet, Rfl: 1 omeprazole (PriLOSEC) [address] capsule, TAKE 1 CAPSULE BY MOUTH EVERY DAY BEFORE BREAKFAST. DO NOT BREAK, CRUSH, DISSOLVE OR CHEW., Disp: 30 capsule, Rfl: 5 phentermine 15 MG capsule, Take 1 capsule (15 mg) by mouth before breakfast., Disp: 30 capsule, Rfl: 1 topiramate (Topamax) 25 MG tablet, Take 1 tablet (25 mg) by mouth Once per day., Disp: 30 tablet, Rfl: 2 venlafaxine XR (Effexor XR) 37.5 MG 24 hr capsule, TAKE 1 CAPSULE BY MOUTH EVERY DAY. DO NOT BREAK,CRUSH, DISSOLVE OR CHEW., Disp: 30 capsule, Rfl: 5 documented in this encounter Miscellaneous Notes * Assessment & Plan Note - Nitza Henderson NP - 07/14/2025 9:40 AM EDTAssociated Problem(s): Vesicles Orders: Herpes Simplex Virus (HSV) Culture and Typing; Future * Assessment & Plan Note - Nitza Henderson NP - 07/14/2025 9:40 AM EDTAssociated Problem(s): Cellulitis of face * Addendum Note - Kun Bowman MA - 07/14/2025 9:40 AM EDTAddended by: KUN SCANLON on: 07/15/2025 11:20 AM Modules accepted: Orders documented in this encounter Plan of Treatment Upcoming Encounters Date Type Department Care Team (Late st Contact Info) Description 08/01/2025 9:00 AM EDT Office Visit [facility] [address] [place] [phone] Sejal Viramontes MD [address] [place] [address] Scheduled Orders Name Type Priority Associated Diagnoses Orde r Schedule Herpes Simplex Virus (HSV) Culture and Typing Microbiology Routine Vesicles Expected: 07/14/2025 (Approximate), Expires: 07/14/2026 Herpes Simple Virus Culture Microbiology Routine Vesicles Ordered: 07/15/2025 documented as of this encounter Visit Diagnoses Diagnosis Vesicles- Primary Other specified disorder of skin Cellulitis of face Cellulitis and abscess of face documented in this encounter Additional Health Concerns Assessment Noted Time PHQ-9 Depression Total Score: 0 05/29/20 25 9:10 AM EDT documented as of this encounter Care Teams Supervisor [employer] Relationship Specialty Start Date End Date Sejal Viramontes MD [address] [place] [address] PCP - General Family Medicine 12/21/21 documented as of this encounter
--- OUTSIDE RECORDS SUMMARY | 2025-07-16 15:23 | XMS_ITS | Encounter Summary ---
Author Organization [employer] Address [address] [facility] 7 [place] [address] Care Team Providers Care Potato Chip Sorter Name Role Phone Sejal Viramontes MD Primary Care Provide r Reason for Visit * Reason Onset Date Comments Med Refill 01/13/2025 Encounter Details Date Type Department Care Team (Late st Contact Info) Description 01/13/2025 Refill [facility] [address] [place], [place] [phone] Sejal Viramontes MD [address] [place] [address] Gastroesophageal reflux disease, unspecified whether esophagitis present [...] Description 08/01/2025 9:00 AM EDT Office Visit [facility] [address] [place] [address] Sejal Viramontes MD [address] [place] [address] documented as of this encounter Visit Diagnoses Diagnosis Gastroesophageal reflux disease, unspecified whether esophagitis present documented in this encounter Additional Health Concerns Assessment Noted Time PHQ-9 Depression Total Score: 0 07/30/20 24 9:38 AM EDT documented as of this encounter Care Teams Potato Chip Sorter Relationship Specialty Start Date End Date Sejal Viramontes MD [address] [place] [address] PCP - General Family Medicine 12/21/21 documented as of this encounter
--- OUTSIDE RECORDS SUMMARY | 2025-07-16 15:23 | XMS_ITS | Encounter Summary ---
Author Organization [employer] Address [address] [facility] 7 [place] [address] Care Team Providers Care Metal Cnc Operator Name Role Phone Sejal Viramontes MD Primary Care Provide r Reason for Visit * Reason Onset Date Comments Specimen label 07/15/2025 Encounter Details Date Type Department Care Team ([facility] st Contact Info) Description 07/15/2025 Telephone [facility] [address] [place], [place] [phone] Nitza Henderson, RASHID [address] [place] [address] Specimen label Social History Tobacco Use Types [...] 07/15/2025 11:01 AM EDT Incoming call from [facility] to inform that due to specimen container ith wrong pt label was receivedtest was not perform. Pt will need a re-collection. Please f/u with DAVIS Tristan if needs re-collection. Thank you. documented in this encounter Plan of Treatment Upcoming Encounters Date Type Department Care Team (Late st Contact Info) Description 08/01/2025 9:00 AM EDT Office Visit [facility] [address] [place] [address] Sejal Viramontes MD [address] [place] [address] documented as of this encounter Visit Diagnoses Not on filedocumented in this encounter Additional Health Concerns Assessment Noted Time PHQ-9 Depression Total Score: 0 05/29/20 25 9:10 AM EDT documented as of this encounter Care Teams Metal Cnc Operator Relationship Specialty Start Date End Date Sejal Viramontes MD [address] [place] [address] PCP - General Family Medicine 12/21/21 documented as of this encounter
--- OUTSIDE RECORDS SUMMARY | 2025-07-16 15:23 | XMS_ITS | Encounter Summary ---
Author Organization [employer] Address [address] [facility] 7 [place] [address] Care Team Providers Care Health Insurance Sales Agent Name Role Phone Sejal Viramontes MD Primary Care Provide r Reason for Visit * Reason Onset Date Comments Med Refill 09/03/2024 Encounter Details Date Type Department Care Team ([facility] st Contact Info) Description 09/03/2024 Refill [facility] [address] [place], [place] [phone] Sejal Viramontes MD [address] [place] [address] Menopause Social History Tobacco Use Types Packs/Day [...] Description 08/01/2025 9:00 AM EDT Office Visit [facility] [address] [place] [address] Sejal Viramontes MD [address] [place] [address] documented as of this encounter Visit Diagnoses Diagnosis Menopause Symptomatic menopausal or female climacteric states documented in this encounter Additional Health Concerns Assessment Noted Time PHQ-9 Depression Total Score: 0 07/30/20 24 9:38 AM EDT documented as of this encounter Care Teams Health Insurance Sales Agent Relationship Specialty Start Date End Date Sejal Viramontes MD [address] [place] [phone] PCP - General Family Medicine 12/21/21 documented as of this encounter
--- OUTSIDE RECORDS SUMMARY | 2025-07-16 15:23 | XMS_ITS | Encounter Summary ---
Author Organization [employer] Address [address] [facility] 7t [place] [address] Care Team Providers Care Monitoring Specialist Name Role Phone Sejal Viramontes MD Primary [...] [facility] [address] [place] [address] Sejal Viramontes MD [address] [place] [phone] documented as of this encounter Visit Diagnoses Not on filedocumented in this encounter Additional Health Concerns Assessment Noted Time PHQ-9 Depression Total Score: 0 05/29/20 25 9:10 AM EDT documented as of this encounter Care Teams Monitoring Specialist Relationship Specialty Start Date End Date Sejal Viramontes MD [address] [place] [phone] PCP - General Family Medicine 12/21/21 documented as of this encounter
--- OUTSIDE RECORDS SUMMARY | 2025-07-16 15:23 | XMS_ITS | Encounter Summary ---
Author Organization [employer] Address [address] [facility] 7 [place] [address] Care Team Providers Care Linen Checker Name Role Phone Sejal Viramontes MD Primary Care Provide r Encounter Details Date Type Department Care Team (Late st Contact Info) Description 12/14/2023 Abstract [facility] [address] [place], [place] [phone] Luiz Patterson, DMD [address], [place] [phone] Social History Tobacco Use Types Packs/Day Years [...] Description 08/01/2025 9:00 AM EDT Office Visit [facility] [address] [place] [phone] Sejal Viramontes MD [address] [place] [phone] documented as of this encounter Visit Diagnoses Not on filedocumented in this encounter Additional Health Concerns Assessment Noted Time PHQ-9 Depression Total Score: 0 07/17/20 23 12:58 PM EDT documented as of this encounter Care Teams Linen Checker Relationship Specialty Start Date End Date Sejal Viramontes MD [address] [place] [phone] PCP - General Family Medicine 12/21/21 documented as of this encounter
--- OUTSIDE RECORDS SUMMARY | 2025-07-16 15:23 | XMS_ITS | Encounter Summary ---
Author Organization [employer] Address [address] [facility] [address] [place] [address] Care Team Providers Care Ux Design Manager Name Role Phone Sejal Viramontes MD Primary Care Provide r Encounter Details Date Type Department Care Team (Late st Contact Info) Description 10/17/2023 Abstract [facility] [address] [place] [address] [phone] Sejal Viramontes MD [address] [place], [place] [phone] Social History Tobacco Use Types Packs/Day Years [...] Description 08/01/2025 9:00 AM EDT Office Visit [facility] [address] [place] [address] Sejal Viramontes MD [address] [place] [address] documented as of this encounter Visit Diagnoses Not on filedocumented in this encounter Additional Health Concerns Assessment Noted Time PHQ-9 Depression Total Score: 0 07/17/20 23 12:58 PM EDT documented as of this encounter Care Teams Ux Design Manager Relationship Specialty Start Date End Date Sejal Viramontes MD [address] [place] [address] PCP - General Family Medicine 12/21/21 documented as of this encounter
--- OUTSIDE RECORDS SUMMARY | 2025-07-16 15:23 | XMS_ITS | Encounter Summary ---
Author Organization [employer] Address [address] [facility] 7 [place] [address] Care Team Providers Care Mental Health Aide Name Role Phone Sejal Viramontes MD Primary Care Provide r Reason for Visit * Reason Onset Date Comments Med Refill 09/21/2023 Encounter Details Date Type Department Care Team (Late st Contact Info) Description 09/21/2023 Refill [facility] [address] [place], [place] [phone] Sejal Viramontes MD [address] [place] [address] Essential hypertension Social History Tobacco Use Types [...] Description 08/01/2025 9:00 AM EDT Office Visit [facility] [address] [place] [address] [phone] Sejal Viramontes MD [address] [place] [address] documented as of this encounter Visit Diagnoses Diagnosis Essential hypertension Unspecified essential hypertension documented in this encounter Additional Health Concerns Assessment Noted Time PHQ-9 Depression Total Score: 0 07/17/20 23 12:58 PM EDT documented as of this encounter Care Teams Mental Health Aide Relationship Specialty Start Date End Date Sejal Viramontes MD [address] [place] [id number] PCP - General Family Medicine 12/21/21 documented as of this encounter
--- OUTSIDE RECORDS SUMMARY | 2025-07-16 15:24 | XMS_ITS | Encounter Summary ---
Author Organization [employer] Address [address] [facility] 7 [place] [address] Care Team Providers Care Mechanical Engineering Officer Name Role Phone Sejal Viramontes MD Primary Care Provide r Reason for Visit * Reason Onset Date Comments Med Refill 11/27/2024 Encounter Details Date Type Department Care Team (Late st Contact Info) Description 11/27/2024 Refill [facility] [address] [place], [place] [phone] Sejal Viramontes MD [address] [place] [address] Acquired hypothyroidism Social History Tobacco Use Types [...] AM EDT Office Visit [facility] [address] [place] [address] Sejal Viramontes MD [address] [place] [address] documented as of this encounter Visit Diagnoses Diagnosis Acquired hypothyroidism Unspecified hypothyroidism documented in this encounter Additional Health Concerns Assessment Noted Time PHQ-9 Depression Total Score: 0 07/30/20 24 9:38 AM EDT documented as of this encounter Care Teams Mechanical Engineering Officer Relationship Specialty Start Date End Date Sejal Viramontes MD [address] [place] [phone] PCP - General Family Medicine 12/21/21 documented as of this encounter
--- OUTSIDE RECORDS SUMMARY | 2025-07-16 15:24 | XMS_ITS | Clinical Summary ---
Author Organization [employer] Address [address] [place] [address] 7[address] [place] [address] Care Team Providers Care Mystery Shopper Name Role Phone Sejal Viramontes MD Primary [...] Type Department Care Team Description 07/15/2025 Telephone [facility] [address] [place] [address] Nitza Henderson NP Specimen label 07/14/2025 9:40 AM EDT Office Visit [facility] [address] [place] [address] Nitza Henderson NP Vesicles (Primary Dx); Cellulitis of face 07/14/2025 Travel 07/09/2025 Refill [facility] [address] [place] [address] Sejal Viramontes MD Gastroesophageal reflux disease, unspecified whether esophagitis present 06/24/2025 Refill [facility] [address] [place] [address] Sejal iVramontes MD Chronic right shoulder pain 06/18/2025 3:20 PM EDT Office Visit [facility] [address] [place] [address] Lloyd Escobar MD Tinea pedis of left foot (Primary Dx) 06/18/2025 Travel 06/16/2025 Telephone [facility] [address] [place] [phone] Sejal Viramontes MD 06/12/2025 Results Follow-Up [facility] [address] [place] [phone] Sejal Viramontes MD Basic Metabolic Panel 06/02/2025 Orders Only [address] [address] Sejal Viramontes MD Essential hypertension (Primary Dx) 06/02/2025 Orders Only [facility] [address] [place] [phone] Sejal Viramontes MD Hyperchylomicronemia (Primary Dx); Hypokalemia 05/29/2025 9:00 AM EDT Office Visit [address] [address] Sejal Viramontes MD Essential hypertension; Prediabetes; Colon cancer screening; Class 1 obesity due to excess calories with serious comorbidity and body mass index (BMI) of 34.0 to 34.9 in adult; Trigger middle finger of right hand; Numbness and tingling in right hand 05/29/2025 Travel 05/26/2025 Telephone [facility] [address] [place] [phone] Sejal Viramontes MD Chart Prep 05/26/2025 Refill [facility] [address] [place] [address] Sejal Viramontes MD Acquired hypothyroidism 05/22/2025 Travel 05/21/2025 Patient Outreach [facility] [address] [place] [address] Sejal Viramontes MD Pre-visit Planning (SDOH screening [...] Office Visit [facility] [address] [place] [phone] Sejal Viramontes MD [address] [place] [address] Health Maintenance Due Date Last Done Comments [...] EDT) Sodium 141 135 - 145 mmol/L [facility] Potassium 3.1(L) 3.3 - 5.1 mmol/L [facility] Chloride 104 96 - 108 mmol/L [facility] Carbon Dioxide 27 22 - 29 mmol/L [facility] Anion Gap 13 12 - 20 [facility] Urea Nitrogen (BUN) 16 9 - 16 mg/dL [facility] Creatinine, Serum 0.87 0.5 - 1.4 mg/dL [facility] Estimated Glomerular Filt Rate >60 [facility] Comment:Chronic Kidney Disea se: Estimated GFR < 60 mL/min/[id number] Kidney Disease: Estimated GFR < 15 mL/min/1.73m2 Glucose 111 60 - 115 mg/dL [facility] Calcium 9.5 8.4 - 10.2 mg/dL [facility] Blood Venous blood specimen / Unknown 06/12/2025 12:30 PM EDT 06/12/2025 12:51 PM EDT us Sejal Recinos MD LAB BLOOD ORDERABLES Final Result Performing Organization Address [facility]/ZIP Co de Phone Number [facility] [address] [place] [address] [phone] * Vitamin D, 25-Hydroxy, Total, Immunoassay (06/02/2025 9:36 AM EDT) Vitamin D 25-OH Total >154.2 >30 ng/mL [facility] Comment: Health Based Reference Values*< 20 ng/mL Popeyesje82-91 ng/mL Insufficient> 30 ng/mL Sufficient*Suresh SIERRA. N [...] BLOOD ORDERABLES Final Result Performing Organization Address [facility]/ZIP Co de Phone Number [facility] [address] [place] [phone] [phone] * TSH with Reflex to Free T4 (06/02/2025 9:36 AM EDT) TSH reflex Free T4 3.37 0.32 - 4.0 uIU/mL [facility] Blood Venous blood specimen / Unknown 06/02/2025 9:36 AM EDT 06/02/2025 11:31 AM EDT Sejal Recinos MD LAB BLOOD ORDERABLES Final Result [facility] [address] [place] [phone] * (ABNORMAL) CBC auto differential (06/02/2025 9:36 AM EDT) White Blood Count 10.8 4.8 - 10.8 X10*3/uL [facility] Red Blood Count 4.57 4.20 - 5.50 X10*6/uL [facility] Hemoglobin 14.2 12.0 - 16.0 g/dl [facility] Hematocrit 41.5 37.0 - 47.0 % [facility] Mean Corpuscular Volume 90.8 80.0 - 98.0 fL [facility] Mean Corpuscular Hemoglobin 31.1 27.0 - 33.0 pg [facility] Mean Corpuscular HGB Conc 34.2 31.0 - 35.0 g/dl [facility] Red Cell Distribution Width 12.3 11.0 - 16.0 % [facility] Platelet Count 306 160 - 400 X10*3/uL [facility] Mean Platelet Volume 10.9 9.4 - 12.3 fL [facility] Neutrophils Percent Auto 69.1 45 - 73 % [facility] Imm Gran Pct Auto 0.5(H) 0.0 - 0.4 % [facility] Lymphocytes Percent Auto 23.1 20 - 40 % [facility] Monocytes Percent Auto 4.5 2 - 11 % [facility] Eosinophils Percent Auto 2.1 0 - 4 % [facility] Basophils Percent Auto 0.7 0 - 2 % [facility] NRBC Pct Auto 0.0 0.0 - 0.2 /100WBC [facility] Neutrophils Absolute Auto 7.5 2.0 - 8.3 x10*3/uL [facility] Imm Gran Abs Auto 0.05(H) 0.00 - 0.03 X10*3/uL [facility] Lymphocytes Absolute Auto 2.5 1.2 - 4.9 X10*3/uL [facility] Monocytes Absolute Auto 0.5 0.1 - 1.2 X10*3/uL [facility] Eosinophils Absolute Auto 0.2 0.0 - 0.4 X10*3/uL [facility] Basophils Absolute Auto 0.1 0.0 - 0.2 X10*3/uL [facility] NRBC Abs Auto 0.000 0.0 - 0.012 X10*3/uL [facility] Blood Venous blood specimen / Unknown 06/02/2025 9:36 AM EDT 06/02/2025 11:33 AM EDT us Sejal Recinos MD LAB BLOOD ORDERABLES Final Result Performing Organization Address [facility] Co de Phone Number [facility] [address] [place] [phone] * Hepatitis C Antibody with Reflex to HCV, RNA, Quantitative, Real-Time PCR (06/02/2025 9:36 AM EDT) Hepatitis C Antibody Nonreactive Nonreactive [facility] Comment:Antibodies to HCV no t detected; does not exclude early acuteHCV infection. Blood Venous blood specimen / Unknown 06/02/2025 9:36 AM EDT 06/02/2025 11:31 AM EDT us Sejal Recinos MD LAB BLOOD ORDERABLES Final Result [facility] [address] [place] [phone] [phone] * HIV-1/2 Antigen and Antibodies, Fourth Generation, with Reflexes (06/02/2025 9:36 AM EDT) HIV AB/AG Nonreactive Nonreactive [facility] Comment:HIV-1 p24 Ag and/or HIV-1/HIV-2 Ab not detected.A test result that is nonreactive does not exclude thepossibility of exposure to or infection with HIV-1 and/orHIV-2. Nonreactive results in this assay for individualswith prior exposure to HIV-1 and/or HIV-2 may be due toantigen and antibody levels that are below the limit ofdetection of this assay.The [employer] HIV Ag/Ab Combo assay result andsupplemental assay results should be interpreted inconjunction with the patient's clinical presentation,history and other laboratory results. If the results areinconsistent with clinical evidence, additional testing issuggested to confirm the result. Blood Venous blood specimen / Unknown 06/02/2025 9:36 AM EDT 06/02/2025 11:31 AM EDT us Sejal Recinos MD LAB BLOOD ORDERABLES Final Result [facility] [address] [place] [phone] * (ABNORMAL) Lipid Panel, Standard (06/02/2025 9:36 AM EDT) Triglycerides 228(H) <150 mg/dL [facility] Comment:Desirable Triglyceri de: less than 150 mg/dLBorderline High Triglyceride 150-199 mg/dLHigh Triglyceride: 200-499 mg/dLVery High Triglyceride: greater than or equal to 5OO mg/dL Cholesterol 205(H) <200 mg/dL [facility] Comment:Desirable Cholestero l: less than 200 mg/dLBorderline High Cholesterol: 200-239 mg/dLHigh Cholesterol: greater than 239 mg/dL LDL Cholesterol Calculated 119(H) <100 mg/dL [facility] Comment:Desirable LDL: less than 100 mg/dLNear Optimal/Above Optimal LDL: 110- 129 mg/dLBorderline High LDL: 130-159 mg/dLHigh LDL: 160-189 mg/dLVery High LDL: greater than or equal to 190 mg/dL HDL Cholesterol 41 >40 mg/dL [facility] Comment:Desirable HDL: great er than 40 mg/dL Note: This HDL assay may give artificially low results in patients with liver disease. Blood Venous blood specimen / Unknown 06/02/2025 9:36 AM EDT 06/02/2025 11:31 AM EDT us Sejal Recinos MD LAB BLOOD ORDERABLES Final Result [facility] [address] [place] [phone] * (ABNORMAL) Comprehensive Metabolic Panel (06/02/2025 9:36 AM EDT) Sodium 141 135 - 145 mmol/L [facility] Potassium 3.2(L) 3.3 - 5.1 mmol/L [facility] Chloride 107 96 - 108 mmol/L [facility] Carbon Dioxide 26 22 - 29 mmol/L [facility] Anion Gap 11(L) 12 - 20 [facility] Urea Nitrogen (BUN) 16 9 - 16 mg/dL [facility] Creatinine, Serum 1.04 0.5 - 1.4 mg/dL [facility] Estimated Glomerular Filt Rate 56 [facility] Comment:Chronic Kidney Disea se: Estimated GFR < 60 mL/min/1.55p7Sjeitw Kidney Disease: Estimated GFR < 15 mL/min/1.73m2 Glucose 145(H) 60 - 115 mg/dL [facility] Calcium 9.3 8.4 - 10.2 mg/dL [facility] Bilirubin, Total 0.7 0.0 - 1.0 mg/dL [facility] Aspartate Amino Transferase 30 5 - 31 U/L [facility] Alanine Aminotransferase 29 0 - 31 U/L [facility] Total Protein 8.0 6.5 - 8.0 g/dL [facility] Albumin Level 4.8 3.5 - 5.0 g/dL [facility] Alkaline Phosphatase 98 39 - 117 U/L [facility] Blood Venous blood specimen / Unknown 06/02/2025 9:36 AM EDT 06/02/2025 11:31 AM EDT Sejal Recinos MD LAB BLOOD ORDERABLES Final Result [facility] [address] [place] [phone] * (ABNORMAL) POCT HGB A1C (05/29/2025 [...] Media Lot # [id number] Lot# Expiration Date 012,067 Blood Capillary blood specimen / Unknown 05/29/2025 9:09 AM EDT Sejal Recinos MD POINT OF CARE TEST EN TER/EDIT ORDERABLES Final Result * BI Mammogram Screening Tomosynthesis Bilateral (07/16/2024 2:30 PM EDT) Anatomical Region Laterality Modality Breast Bilateral Mammography 07/16/2024 2:30 PM EDT Narrative 08/06/2024 4:23 PM EDT [address] [place] [address] Mammography Report Signed Patient: Yanelis Llanes MR#: [id number] : 1975 Acct:[id number] Age/Sex: 49 / F ADM Date: 07/16/24 Loc: HO.MAMMO Attending Dr: Sejal Recinos MD Ordering Physician: Sejal Viramontes MD Results: 1Negative Date of Service: 07/16/24 Follow Up: 1 Year From Orig inal Mammogram Procedure(s): MM tomosynthesis screening BI Accession Number(s): [id number] cc: Sejal Viramontes MD EXAMINATION: MM SCREENING [...] 08/06/24 1620 DD/ 1430 TD/TT: 07/16/24 1455 Milliner Helper: Procedure Note Donotuseinterpreter, Image - 08/06/[address] [place] [address] Mammography Report Signed Patient: Kameron Llanes#: M [id number] : 1975Acct:[id number] Age/Sex: 49 / FADM Date: 07/16/24 Loc: HO.MAMMO Attending Dr: Sejal Recinos MD Ordering Physician: Sejal Viramontes MDResults: 1Negative Date of Service: 07/16/24Follow Up: 1 Year From Orig ina Mammogram Procedure(s): MM tomosynthesis screening BI Accession Number(s): [id number] cc: Sejal Viramontes MD EXAMINATION: MM SCREENING [...] 08/06/24 1620 DD/ 1430 TD/TT: 07/16/24 1455 Milliner Helper: us Sejal Recinos MD IMG BI PROCEDURES Nash frederick Result - Final * THINPREP TIS PAP AND HPV mRNA E6/E7, CT/NG, TRICH (03/15/2022 9:48 AM EDT) Chlamydia trachomatis RNA, TMA, Urogenital NOT DETECTED NOT DETECTED [facility] Clinical Information: None given [facility] COMMENT SEE COMMENT [facility] Comment: The analytical performance characteristics of this assay, when used to test SurePath(TM) specimens have been determined by [employer]. The modifications have not been cleared or approved by the FDA. This assay has been validated pursuant to the CLIA regulations and is used for clinical purposes. For additional information, please refer to https://education.Post.Bid.Ship.[employer] [place]/faq/HYS662 (This link is being provided for information/ [...] has been evaluated with computer assisted technology. [facility] Cooler Servicer: SEE COMMENT [employer] Comment: MPG, CT(ASCP) CT screening location: [place] [address] HPV nRNA E6/E7 Not Detected Not Detected [facility] Comment: Methodology: Spinneret Cleaner-Mediated Amplification This assay detects E6/E7 viral messenger RNA (mRNA) from 14 high-risk HPV types (16,18,31,33,35,39,45,51,52,56,58,59,66,68). The analytical performance characteristics of this assay have been determined by [employer]. The modifications have not been cleared or approved by the FDA. This assay has been validated pursuant to the CLIA regulations and is used for clinical purposes. For additional information, please refer to http://education.[employer]/faq/KZC928h3 (This link if provided for information/ educational purposes only.) Interpretation/Re sult: Negative for intraepithelial lesion or malignancy. [facility] LMP: NONE GIVEN [facility] Neisseria gonorrhoeae RNA, TMA, Urogenital NOT DETECTED NOT DETECTED [facility] Prev. BX: NONE GIVEN [facility] Prev. PAP: NONE GIVEN [facility] SOURCE: None given [facility] Statement Of Adequacy: SEE COMMENT [facility] Comment: Satisfactory for evaluation. Endocervical/transformation zone component present. Age and/or menstrual status not provided Trichomonas vaginalis, QL, TMA, PAP Vial NOT DETECTED NOT DETECTED [facility] Comment: The analytical performance characteristics of this assay have been determined by [employer]. The modifications have not been cleared or approved by the FDA. This assay has been validated pursuant to the CLIA regulations and is used for clinical purposes. For additional information, please refer to http://education.[employer]/ faq/Trichomonastma (This link is being provided for information/ educational purposes only.) Chlamydia trachomatis RNA, TMA, Urogenital NOT DETECTED NOT DETECTED [facility] Clinical Information: None given [facility] COMMENT SEE COMMENT [facility] Comment: The analytical performance characteristics of this assay, when used to test SurePath(TM) specimens have been determined by [employer]. The modifications have not been cleared or approved by the FDA. This assay has been validated pursuant to the CLIA regulations and is used for clinical purposes. For additional information, please refer to https://education.[employer]/faq/IOZ576 (This link is being provided for information/ [...] has been evaluated with computer assisted technology. [facility] Cooler Servicer: SEE COMMENT [facility] Comment: MPG, CT(ASCP) CT screening location: [address] [address] HPV nRNA E6/E7 Not Detected Not Detected [facility] Comment: Methodology: Spinneret Cleaner-Mediated Amplification This assay detects E6/E7 viral messenger RNA (mRNA) from 14 high-risk HPV types (16,18,31,33,35,39,45,51,52,56,58,59,66,68). The analytical performance characteristics of this assay have been determined by [employer]. The modifications have not been cleared or approved by the FDA. This assay has been validated pursuant to the CLIA regulations and is used for clinical purposes. For additional information, please refer to http://[employer]/faq/SAX152s7 (This link if provided for information/ educational [...] LAB SYSTEM Statement Of Adequacy: SEE COMMENT [facility] Comment: Satisfactory for evaluation. Endocervical/transformation zone component present. Age and/or menstrual status not provided Trichomonas vaginalis, QL, TMA, PAP Vial NOT DETECTED NOT DETECTED [facility] Comment: The analytical performance characteristics of this assay have been determined by [employer]. The modifications have not been cleared or approved by the FDA. This assay has been validated pursuant to the CLIA regulations and is used for clinical purposes. For additional information, please refer to http://[employer]/ faq/Trichomonastma (This link is being provided for information/ educational purposes only.) Chlamydia trachomatis RNA, TMA, Urogenital NOT DETECTED NOT DETECTED [facility] Clinical Information: None given [facility] COMMENT SEE COMMENT [facility] Comment: The analytical performance characteristics of this assay, when used to test SurePath(TM) specimens have been determined by [employer]. The modifications have not been cleared or approved by the FDA. This assay has been validated pursuant to the CLIA regulations and is used for clinical purposes. For additional information, please refer to https://[employer]/faq/ODB127 (This link is being provided for information/ educational purposes only.) COMMENT SEE COMMENT [facility] Comment: EXPLANATORY NOTE: The [...] has been evaluated with computer assisted technology. [facility] Cooler Servicer: SEE COMMENT [facility] Comment: MPG, CT(ASCP) CT screening location: [address] [address] HPV nRNA E6/E7 Not Detected Not Detected [facility] Comment: Methodology: Spinneret Cleaner-Mediated Amplification This assay detects E6/E7 viral messenger RNA (mRNA) from 14 high-risk HPV types (16,18,31,33,35,39,45,51,52,56,58,59,66,68). The analytical performance characteristics of this assay have been determined by [employer]. The modifications have not been cleared or approved by the FDA. This assay has been validated pursuant to the CLIA regulations and is used for clinical purposes. For additional information, please refer to http://[employer]/faq/BIL598s1 (This link if provided for information/ educational [...] of this assay have been determined by [employer]. The modifications have not been cleared or approved by the FDA. This assay has been validated pursuant to the CLIA regulations and is used for clinical purposes. For additional information, please refer to http://education.[employer]/ faq/Trichomonastma (This link is being provided for information/ educational purposes only.) 03/15/2022 9:48 AM EDT Sejal Recinos MD LAB PATHOLOGY ORDERAB LES Final Result [facility] [address] from Last 3 Months or Most Recently Relevant to Health Maintenance Insurance [facility] , [address] [place] [address] DENTAL - [facility] Care Teams Mystery Shopper Relationship Specialty Start Date End Date Sejal Viramontes MD [address] [place] [phone] PCP - General Family Medicine 12/21/21
== END 2025-07-15 12:21 | disposition home or self-care (01) ==
LOC: HO.HHCLNP 12:20
PROVIDERS: Visit Provider Nurse Practitioner Family
DX: R23.8 Other skin changes (principal)
CPT/HCPCS: 36415; 87255

== ENCOUNTER 2025-08-04 13:09 | Outpatient (REF) | payer OTHER, SELFPAY ==
[2025-08-04 16:49] LABS: Anion Gap 11 (12-20); Blood Urea Nitrogen 13 mg/dL (9-16); Calcium 9.1 mg/dL (8.4-10.2); Carbon Dioxide 25 mmol/L (22-29); Chloride 109 mmol/L (96-108); Estimated Glomerular Filt Rate > 60; Potassium 3.4 mmol/L (3.3-5.1); Sodium 142 mmol/L (135-145)
== END 2025-08-04 13:10 | disposition home or self-care (01) ==
LOC: HO.HHCL 13:09
PROVIDERS: PCP Internal Medicine; Visit Provider Internal Medicine
DX: I10 Essential (primary) hypertension (principal)
CPT/HCPCS: 36415; 80048